=== PATIENT | male | born 1945 | race Caucasian/White ===

== ENCOUNTER 2016-10-15 09:04 | Inpatient (IN) | payer MEDICARE ==
[~2016-10-15] VITALS: Ht 172.7 cm; Wt 77.4 kg
[2016-10-15] MEDS ORDERED: PIPER-TAZO 3.375 GM IV (PMX) 100 ML IVPB STA (09:20)
[2016-10-15] MEDS ORDERED: VANCOMYCIN 1 GM (PMX) 250 ML IVPB STA (09:20)
[2016-10-15] MEDS ORDERED: LEVOFLOXACIN 750MG/D5W (PMX) 150 ML IVPB STA (09:20)
[2016-10-15] MEDS ORDERED: SODIUM CHLORIDE 0.9% 1L BAG IV* STA (09:20)
[2016-10-15] MEDS ORDERED: ACET325S GTB (09:31)
[2016-10-15] MEDS ORDERED: ASCO500S2 GTB (09:34)
[2016-10-15] MEDS ORDERED: DIPH25CA6 GTB (09:35)
[2016-10-15] MEDS ORDERED: IPRA3AMP INHALATION (09:35)
[2016-10-15] MEDS ORDERED: FURO40TA4 GTB (09:37)
[2016-10-15] MEDS ORDERED: HYDR-3671 GTB (09:39)
[2016-10-15] MEDS ORDERED: LANT3I SC (09:40)
[2016-10-15] MEDS ORDERED: GLUC1KIT IJ (09:40)
[2016-10-15] MEDS ORDERED: ZINC220C5 GTB (09:42)
[2016-10-15] MEDS ORDERED: SPIR25TA76 GTB (09:43)
[2016-10-15] MEDS ORDERED: CARAS GTB (09:43)
[2016-10-15] MEDS ORDERED: HYDR-902 GTB ×2 (09:44→09:45)
[2016-10-15] MEDS ORDERED: MULTI GTB (09:46)
[2016-10-15] MEDS ORDERED: UDREG GTB (09:47)
[2016-10-15] MEDS ORDERED: LEVE500S9 GTB (09:48)
[2016-10-15] MEDS ORDERED: LANS30CA GTB (09:49)
[2016-10-15] MEDS ORDERED: ISOS20TA19 GTB (09:50)
[2016-10-15] MEDS ORDERED: INSU100V3 IJ (09:55)
[2016-10-15 10:08] LABS: BASOPHIL # 0.1 10^3/ul (0.0-0.1); BASOPHILS % 0.4 % (0.0-2.0); EOSINOPHILS # 1.4 10^3/ul (0.0-0.5); EOSINOPHILS % 8.7 % (0.0-7.0); HEMATOCRIT 24.5 % (42.0-52.0); HEMOGLOBIN 8.2 g/dl (14.0-18.0); LYMPHOCYTES # 1.4 10^3/ul (0.8-2.9); LYMPHOCYTES % 8.7 % (15.0-51.0); MEAN CORPUSCULAR HEMOGLOBIN 29.1 pg (29.0-33.0); MEAN CORPUSCULAR HGB CONC 33.4 g/dl (32.0-37.0); MEAN CORPUSCULAR VOLUME 87.3 fl (82.0-101.0); MEAN PLATELET VOLUME 8.2 fl (7.4-10.4); MONOCYTE # 1.1 10^3/ul (0.3-0.9); MONOCYTES % 6.7 % (0.0-11.0); NEUTROPHILS % 75.5 % (39.0-77.0); PLATELET COUNT 421 10^3/UL (140-440); RED BLOOD COUNT 2.81 10^6/ul (4.70-6.10); RED CELL DISTRIBUTION WIDTH 16.1 % (11.5-14.5)
--- NOTE | 2016-10-15 10:10 | RADRPT ---
PROCEDURE: XR Chest. CLINICAL INDICATION: Sepsis TECHNIQUE: An AP view of the chest was obtained. COMPARISON: Chest x-ray dated 09/24/2016 FINDINGS: A tracheostomy tube is in place. There is prominence of the interstitial markings. A small left pleural effusion. No focal airspace opacity or pneumothorax is seen. The cardiomediastinal silhouette is mildly enlarged . Calcificati ons are seen within the aortic arch. The osseous structures demonstrate senescent changes. IMPRESSION: 1. Mild prominence of the interstitial markings, may reflect mild underlying interstitial edema or chronic lung changes. Lung aeration is significantly improved when compared to the prior examination . 2. Small left pleural effusion. 3. Mild cardiomegaly and aortic atherosclerosis. 4. Tracheostomy tube. RPTAT: HH .Beatrice Zapata MD, Date Time Electronically viewed and signed by .Beatrice Zapata MD, on 10/15/2016 10:10 .G/
[2016-10-15 10:11] LABS: ADD UMIC YES; URINE BILIRUBIN (Dip) NEGATIVE (NEGATIVE); URINE BLOOD (Dip) 1+ (NEGATIVE); URINE COLOR LT. YELLOW (YELLOW); URINE GLUCOSE (Dip) NEGATIVE (NEGATIVE); URINE KETONES (Dip) NEGATIVE (NEGATIVE); URINE LEUKOCYTE ESTERASE (Dip) 1+ (NEGATIVE); URINE NITRITE (Dip) POSITIVE (NEGATIVE); URINE TOTAL PROTEIN (Dip) 2+ (NEGATIVE); URINE UROBILINOGEN (Dip) 0.2 E.U./dL (0.1-1.0)
[2016-10-15 10:17] LABS: CONDITION 1; LH ANALYZER COMMENTS 1
[2016-10-15 10:20] LABS: CHLORIDE 101 mmol/L (97-110); SODIUM 139 mmol/L (135-144)
[2016-10-15 10:21] LABS: INR 0.92; PROTIME 12.4 Sec (12.2-14.2)
[2016-10-15 10:22] LABS: CREATININE 2.02 mg/dl (0.61-1.24); PARTIAL THROMBOPLASTIN TIME 35.1 Sec (25.0-35.0)
[2016-10-15 10:23] LABS: ALANINE AMINOTRANSFERASE 91 IU/L (13-69); ALBUMIN/GLOBULIN RATIO 0.69; ALKALINE PHOSPHATASE 1099 IU/L (42-121); ANION GAP 16 (8-16); ASPARTATE AMINO TRANSFERASE 70 IU/L (15-46); BLOOD UREA NITROGEN 93 mg/dl (7-20); CARBON DIOXIDE 28 mmol/L (21-31); GLUCOSE 153 mg/dl (70-220); TOTAL PROTEIN 7.3 g/dl (6.1-8.1)
[2016-10-15 10:24] LABS: CALCIUM 8.2 mg/dl (8.4-10.2)
[2016-10-15 10:26] LABS: POTASSIUM 6.2 mmol/L (3.5-5.1)
[2016-10-15 10:28] LABS: BACTERIA,URINE MANY
[2016-10-15 10:37] LABS: TROPONIN-I < 0.010 ng/ml (0.00-0.12)
--- NOTE | 2016-10-15 10:56 | ERA ---
ER Documentation Chief Complaint Date/Time DATE: 10/15/16 TIME: 917 Chief Complaint Abnormal lab tests HPI 71-year-old male referred to the emergency department from his care facility for evaluation of an abnormal lab test including an elevated BUN and creatinine , and elevated white blood cell count. Patient is nonverbal and provides no significant insight and I have no other historical sources. ROS All systems reviewed and are negative except as per history of present illness. Medications Home Meds Reported Medications Insulin Regular, Human (Humulin R) 100 Unit/1 Ml Vial, 0 IJ Q6, VIAL SLIDING SCALE 0-150 = O UNITS 151-200 = 2 UNITS 201-250 = 4 UNITS 251-300 = 6 UNITS 301-350 = 8 UNITS 351-400 =10 UNITS IF OVER 400 GIVE 12 UNITS AND CALL MD 10/15/16 Isosorbide Dinitrate* (Isosorbide Dinitrate*) 20 Mg Tablet, 20 MG GTB TID, TAB 10/15/16 Lansoprazole* (Lansoprazole*) 30 Mg Capsule.dr, 30 MG GTB BID, CAP 10/15/16 Levetiracetam* (Levetiracetam*) 500 Mg/5 Ml Solution, 1000 MG GTB BID, ML 10/15/16 Metoclopramide* (Reglan*) 10 Mg/10 Ml Soln, 5 MG GTB Q8 Y for NAUSEA AND/OR VOMITING, ML 10/15/16 Multivitamins* (Theragran*) 1 Tab Tab, 1 TAB GTB DAILY, TAB 10/15/16 Hydrocodone/Acetaminophen ([place] 10-325 Tablet) 1 Each Tablet, 1 EACH GTB Q6 Y for PAIN, TAB 10/15/16 Hydrocodone/Acetaminophen ([place] 10-325 Tablet) 1 Each Tablet, 1 EACH GTB EVERY DAY SHIFT Y for WOUND CARE, TAB 10/15/16 Spironolactone* (Aldactone*) 25 Mg Tablet, 25 MG GTB DAILY, #30 TAB 10/15/16 Sucralfate* (Carafate*) 1 Gm/10 Ml Susp, 1 GM GTB BID, EA 10/15/16 Zinc Sulfate* (Zinc Sulfate*) 220 Mg Cap, 220 MG GTB DAILY, CAP END DATE 10-19-16 10/15/16 Insulin Glargine* (Lantus*) 100 Unit/Ml Soln, 12 UNIT SC BID, #1 VIAL 10/15/16 Glucagon,Human Recombinant (Glucagon Emergency Kit) 1 Mg Kit, 1 MG IJ PRN, KIT 10/15/16 Hydralazine Hcl* (Hydralazine Hcl*) 25 Mg Tab, 25 MG GTB Q6 Y for ELEVATED BLOOD PRESSURE, #120 TAB HOLD IF SBP <110 OR HR<60 10/15/16 Furosemide* (Furosemide*) 40 Mg Tablet, 40 MG GTB DAILY, TAB 10/15/16 Ipratropium-Albuterol (Ipratropium-Albuterol) 0.5-3 Mg/3 Ml Ampul.neb, 3 ML INHALATION Q4 Y for WHEEZING AND SOB, #30 VIAL 10/15/16 Diphenhydramine Hcl* (Diphenhydramine Hcl*) 25 Mg Capsule, 25 MG GTB Q6 Y for ITCHING, CAP 10/15/16 Ascorbic Acid* (Ascorbic Acid*) 500 Mg/5 Ml Syrup, 500 MG GTB DAILY, #150 ML 10/15/16 Acetaminophen* (Acetaminophen* Susp) 325 Mg/10.15 Ml Solution, 650 MG GTB Q6 Y for ELEVATED TEMPERATURE, ML OVER 100.2 10/15/16 Allergies Allergies: Coded Allergies: No Known Allergies (Unverified Allergy, Unknown, 10/15/16) PMhx/Soc History of Surgery: No Anesthesia Reaction: No Hx Neurological Disorder: No Hx Respiratory Disorders: Yes (RESPIRATORY FAILURE) Hx Cardiac Disorders: Yes (HTN) Hx Psychiatric Problems: No Hx Miscellaneous Medical Probl: No Hx Alcohol Use: No Hx Substance Use: No Hx Tobacco Use: No Smoking Status: Never smoker FmHx Unable to obtain Physical Exam Vitals Vital Signs Date Time Temp Pulse Resp B/P Pulse Ox O2 Delivery O2 Flow Rate FiO2 10/15/16 10:49 81 17 100 40 10/15/16 09:18 98.7 87 18 145/66 98 Physical Exam General: frail, bed bound, ill appearing HEENT: Mucous membranes dry, sclera nonicteric Neck: Tracheostomy noted. Ostomy patent. No inflammatory changes noted. No JVD. Cardiovascular: Regular rate and rhythm, no murmurs rubs or gallops. Lungs: Transmission of upper airway sounds. Abdomen: Soft with G-tube appreciated. Nontender to palpation. Bowel sounds noted. : Diaper in place and incontinent. Extremities: Atrophic but atraumatic with no edema, cyanosis or clubbing. Neurologic: Baseline organic brain syndrome noted. Gag reflex week. Motor strength diminished in all 4 extremities but otherwise nonfocal. Skin: Skin breakdown noted per nursing note. Result Diagram: 10/15/1630 10/15/1630 Results 24 hrs Laboratory Tests Test 10/15/16 09:30 Activated Partial Thromboplast Time 35.1Sec Alanine Aminotransferase (ALT/SGPT) 91IU/L Albumin 3.0g/dl Albumin/Globulin Ratio 0.69 Alkaline Phosphatase 1099IU/L Anion Gap 16 Aspartate Amino Transf (AST/SGOT) 70IU/L Basophils # 0.110^3/ul Basophils % 0.4% Blood Morphology Comment Blood Urea Nitrogen 93mg/dl Calcium Level 8.2mg/dl Carbon Dioxide Level 28mmol/L Chloride Level 101mmol/L Creatinine 2.02mg/dl Direct Bilirubin 0.00mg/dl Eosinophils # 1.410^3/ul Eosinophils % 8.7% Globulin 4.30g/dl Glucose Level 153mg/dl Hematocrit 24.5% Hemoglobin 8.2g/dl INR International Normalized Ratio 0.92 Indirect Bilirubin 0.0mg/dl Lactic Acid Level 0.8mmol/L Lymphocytes # 1.410^3/ul Lymphocytes % 8.7% Mean Corpuscular Hemoglobin 29.1pg Mean Corpuscular Hemoglobin Concent 33.4g/dl Mean Corpuscular Volume 87.3fl Mean Platelet Volume 8.2fl Monocytes # 1.110^3/ul Monocytes % 6.7% Neutrophils # 12.010^3/ul Neutrophils % 75.5% Nucleated Red Blood Cells # 0.010^3/ul Nucleated Red Blood Cells % 0.0/100WBC Platelet Count 88451^3/UL Potassium Level 6.2mmol/L Prothrombin Time 12.4Sec Prothrombin Time Ratio 1.0 Red Blood Count 2.8110^6/ul Red Cell Distribution Width 16.1% Sodium Level 139mmol/L Total Bilirubin 0.0mg/dl Total Protein 7.3g/dl Troponin I < 0.010ng/ml Urine Bacteria MANY Urine Bilirubin NEGATIVE Urine Clarity SLIGHTLY CLOUDY Urine Color LT. YELLOW Urine Glucose NEGATIVE% Urine Hemoglobin 1+ Urine Ketones NEGATIVE Urine Leukocyte Esterase 1+ Urine Microscopic RBC 2-5/HPF Urine Microscopic WBC 5-10/HPF Urine Nitrite POSITIVE Urine Specific [place] 1.015 Urine Total Protein 2+ Urine Urobilinogen 0.2 E.U./dL Urine Yeast MANY Urine pH 8.5 White Blood Count 16.010^3/ul Current Medications Medications (Trade) Dose Ordered Sig/Ajmeson Route PRN Reason Start Time Stop Time Status Last Admin Dose Admin Sodium Chloride 2170 ml 2,170 ml BOLUS OVER 2 HOURS STAT IV* 10/15/16 09:20 10/15/16 09:23 DC 10/15/16 09:52 Vancomycin HCl 250 ml @ 125 mls/hr ONCE STAT IVPB 10/15/16 09:20 10/15/16 11:19 Piperacillin Sod/ Tazobactam Sod 100 ml @ 200 mls/hr ONCE STAT IVPB 10/15/16 09:20 10/15/16 09:49 DC 10/15/16 09:52 Levofloxacin/ Dextrose (Levaquin 750 Mg/ D5W 150 ml (Pmx)) 150 ml @ 100 mls/hr ONCE STAT IVPB 10/15/16 09:20 10/15/16 10:49 DC 10/15/16 10:27 Procedures/MDM Patient was taken to a room, seen and evaluated. Comfort measures were initiated. Diagnostic tests were ordered and reviewed. 3 LEAD RHYTHM STRIP: Normal sinus rhythm without ectopy EK lead EKG reviewed by myself: Normal Sinus Rhythm Normal [place] and intervals No ST elevation, depression, or T wave inversion Impression: Normal EKG RADIOLOGY: reviewed with the radiologist CONSULTATION: Patient's primary care doctor was notified for admission REEVALUATION: Patient remained hemodynamically stable MEDICAL DECISION MAKIN-year-old male presents for abnormal blood tests. Lab tests indicate an early sepsis but not severe sepsis based on a normal lactate. At this time, patient seems to have evidence of a healthcare associated/ventilator associated pneumonia. He has concurrent acute renal failure. Patient will require admission to the hospital for observation and monitoring, IV fluids, IV antibiotics and monitoring his comorbid conditions. Patient presents with sepsis. Severe Sepsis Critical Care: Assessment: Infectious Source: Catheter associated urinary tract infection/healthcare associated pneumonia, cholecystitis to be ruled out End organ damage indicated by: Initial Lactate: Reviewed less than 2 Acute renal failure Severe Sepsis Managment: Blood Cultures X 2 before broad spectrum antibiotics initiated within 3 hours of recognition. 30 ml/kg NS bolus ongoing Initial Lactate: reviewed Repeat Lactate pending Critical Care: Time: > 35 minutes Treatments/Evaluations: Emergent fluid management, while maintaining close respiratory support. Immediate broad spectrum antibiotic therapy. Simultaneous assessment for possible sources in order to direct therapy. Consideration for invasive and chemical support to prevent respiratory or cardiac collapse. Septic Shock Assessment (1 hour post 30 ml/kg fluid bolus): Hypotension (SBP < 90 or 40 mmHg drop, MAP < 65): No Lactic acid > 4.0: No Perfusion Reassessment for Septic Shock: Vital signs reviewed with nursing Heart Exam: Regular rate rhythm no murmurs Lung Exam: No Crackles Capillary Refill: Delayed Peripheral Pulses: Radially present Departure Diagnosis: Primary Impression: Sepsis Additional Impressions: Catheter-associated urinary tract infection Ventilator associated pneumonia Acute renal failure Condition: Serious NEFTALI MARTINEZ Oct 15, 2016 10:56
[2016-10-15] MEDS ORDERED: NA POLYST SULFON 15 GM/60 ML BTL PO ONE ×2 (13:00→17:00)
--- NOTE | 2016-10-15 13:04 | RADRPT ---
PROCEDURE: US Abdomen (right upper quadrant). CLINICAL INDICATION: Pain TECHNIQUE: Multiple real-time longitudinal and transverse images of the right upper quadrant of th e abdomen were acquired utilizing a curved array transducer. Images were reviewed on a high-resoluti on PACS workstation. COMPARISON: None FINDINGS: The liver is normal in size (15.8 cm) and fatty infiltrated, without focal mass. Normal hepatopedal flow is present within the main portal vein. The gallbladder is unremarkable. There is no pericho lecystic fluid or gallbladder wall thickening or gallstones. No intra or extrahepatic biliary dilata tion is seen. The common bile duct measures 7.0 mm in maximal dimension. The pancreas is obscured by bowel gas. No ascites is identified. Small right pleural effusion is noted. The right kidney measures 10.8 cm in length. No renal mass, calculus, hydronephrosis or perinephric fluid collection is identified. Visualized portion of the abdominal aorta and IVC is unremarkable. IMPRESSION: 1. Hepatic steatosis. 2. No evidence of cholelithiasis or cholecystitis. 3. Small right pleural effusion is noted. RPTAT: EE .Markus Greene MD, Date Time Electronically viewed and signed by .Markus Greene MD, on 10/15/2016 13:04 .R/
--- NOTE | 2016-10-15 14:22 | CONS ---
DATE OF ADMISSION: 10/15/2016 DATE OF CONSULTATION: 10/15/2016 INFECTIOUS DISEASE CONSULTATION REASON FOR CONSULTATION: Antibiotic management. HISTORY OF PRESENT ILLNESS: Elham Avina is a 71-year-old unfortunate male who comes into the emergenc y room with abnormal laboratory tests including an elevated BUN, creatinine, and white count. The p atient is nonverbal. His past problems include: 1. Chronic obstructive pulmonary disease with ventilator dependent respiratory failure. 2. Status post tracheostomy. 3. Hypertension. 4. Dysphagia, status post G-tube placement. Acutely, the patient comes in, his white count was 16,000, H and H of 8.2 and 24.5, platelet count 4 21,000. BUN and creatinine 93 and 2.02. His glucose is 153. PAST MEDICAL HISTORY: Operations as outlined. FAMILY HISTORY: Noncontributory. SOCIAL HISTORY: No history of smoking, drinking, or abuse of drugs. ALLERGIES: NONE TO PENICILLIN, SULFA, OR FOODS. MEDICATIONS: Per chart. REVIEW OF SYSTEMS: As per HPI. PHYSICAL EXAMINATION: GENERAL: The patient is a frail bed bound male who is chronically ill, in no acute distress. VITAL SIGNS: Stable. He is afebrile. SKIN: Without generalized rash. There are some skin breakdowns. HEENT: Within normal limits. NECK: Supple. There is a tracheostomy in place without discharge. LYMPH NODES: None palpable. CHEST: Decreased breath sounds at the bases. HEART: Without murmur or gallop. ABDOMEN: Soft, nontender, without organosplenomegaly or masses. G-tube in place without discharge. EXTREMITIES: Without cyanosis, clubbing, or edema. His muscles are atrophic. RECTAL AND GENITAL: Deferred. The patient is in the diaper. NEUROLOGIC: The patient with organic brain syndrome. There are no focal neurological abnormalities . IMAGING: Chest x-ray shows tracheostomy, mild prominence of interstitial markings, may reflect mild underlying interstitial edema or chronic lung changes, small left pleural effusion, mild cardiomega ly and aortic atherosclerosis. LABORATORY DATA: Urine shows 1+ leukocyte esterase, 5 to 10 white cells per high-power field. Pota ssium of 6.2. BUN and creatinine was 93/2.02. Significant for renal failure and probable dehydrati on. The patient was begun on vancomycin and Zosyn. Blood cultures were drawn. C difficile was ordered. Culture of the feces and urine were also done. IMPRESSION AND PLAN: Elham Avina comes in with sepsis with a white count of 16,000. Source is not cl ear at this point. Will continue him on vancomycin and Zosyn. Dictated By: MOLINA GOMEZ MD, JD/HANK Conf#: [id number] DID#: [id number]
[2016-10-15] MEDS ORDERED: GLUCOSE GEL 15 GRAM TUBE PO PRN ×2 (15:30→15:31)
[2016-10-15] MEDS ORDERED: DEXTROSE 50% 50 ML SYRINGE IV PRN ×2 (15:30)
[2016-10-15] MEDS ORDERED: GLUCAGON 1 MG INJ IM PRN (15:30)
[2016-10-15] MEDS ORDERED: GLUCOSE GEL 15 GRAM TUBE BUCCAL PRN (15:30)
[2016-10-15] MEDS ORDERED: HYDROCODONE/APAP (10/325) TAB GTB PRN ×2 (15:30)
[2016-10-15] MEDS ORDERED: DIPHENHYDRAMINE 25 MG CAP GTB PRN (15:30)
[2016-10-15] MEDS ORDERED: ACETAMINOPHEN 650MG/20.3ML CUP GTB PRN (15:30)
[2016-10-15] MEDS ORDERED: ALBUTEROL/IPRATROPIUM (NEB) 3 ML AMP NEB PRN (15:30)
[2016-10-15] MEDS ORDERED: METOCLOPRAMIDE (1 MG/ML) 10 ML CUP GTB PRN (15:30)
[2016-10-15] MEDS ORDERED: VANCOMYCIN IV PER PHARMACY XX SCH (16:30)
[2016-10-15 16:53] LABS: CREATININE 2.06 mg/dl (0.61-1.24)
[2016-10-15 16:54] LABS: CALCIUM 8.1 mg/dl (8.4-10.2)
[2016-10-15] MEDS: PIPER-TAZO 3.375 GM IV (PMX) 100 ML IVPB SCH ×2 (16:57→23:02)
[2016-10-15 16:59] LABS: POTASSIUM 6.1 mmol/L (3.5-5.1)
[2016-10-15] MEDS ORDERED: Discontinue Glyburide, Glipizide, and/or Glimepiride prior to starting Insulin XX ONE (17:00)
[2016-10-15] MEDS ORDERED: HYPOGLYCEMIA PROTOCOL when Glucose is <70 mg/dL or symptomatic <90 mg/dL. XX ONE (17:00)
--- NOTE | 2016-10-15 17:13 | CONS ---
DATE OF ADMISSION: 10/15/2016 DATE OF CONSULTATION: 10/15/2016 TYPE OF CONSULTATION: Cardiology. REASON FOR CONSULTATION: Ventilator management. Thank you, Dr. Bragg, for this consultation. HISTORY OF PRESENT ILLNESS: This is an unfortunate 71-year-old gentleman with history of vent-depen dent respiratory failure, presented to the hospital today. Date of consultation was 10/15/2016, pr esented with increasing abnormal labs including leukocytosis and creatinine. Few further details ar e available. The patient is nonverbal and continues mechanical ventilation. PAST MEDICAL HISTORY: 1. Vent dependent respiratory failure. 2. History of tracheostomy. 3. History of dysphagia. 4. Encephalopathy of unclear etiology. Incomplete data. MEDICATIONS: Per chart. ALLERGIES: NO KNOWN ALLERGIES. SOCIAL HISTORY: Nonsmoker, no alcohol, no history of drug use. FAMILY HISTORY: Noncontributory. SYSTEMS REVIEW: A 12-point review of systems was unable to perform. PHYSICAL EXAMINATION: GENERAL: Chronically ill appearing gentleman, appears comfortable at rest, no acute distress. VITAL SIGNS: Currently afebrile, pulse is 76, blood pressure 132/69, O2 saturation 96%, FIO2 of 40% . NECK: Trach site clean and intact. CARDIAC: S1, S2, no added sounds or murmurs. CHEST: Diminished air entry bilaterally. ABDOMEN: Soft, nontender. No guarding or rebound. EXTREMITIES: No cyanosis, clubbing, edema. NEUROLOGIC: Generalized weakness. LABORATORY DATA: White count 16.0, hemoglobin 8.2, platelets 41, potassium 6.2, BUN 93, creatinine 2.02. DIAGNOSTIC DATA: Chest x-ray was reviewed, shows increased interstitial edema, small left pleural e ffusion and abdominal ultrasound shows hepatic steatosis, otherwise no significant abnormalities. IMPRESSION AND PLAN: 1. Leukocytosis, likely secondary to urinary tract infection with positive leukocyte esterase, bact eria and nitrites. 2. History vent dependent respiratory failure. 3. History of dysphagia. 4. Incomplete data. The patient will require: 1. Continued vent support. 2. Bronchodilators. 3. Broad-spectrum antibiotics pending cultures. 4. DVT and GI prophylaxis. 5. Correction of hyperkalemia per Nephrology. Dictated By: DIEGO MARKS MD SV/HANK Conf#: [id number] DID#: [id number]
[2016-10-15] MEDS ORDERED: VANCOMYCIN 750 MG in SOD CHLORIDE 0.9% 150 ML IVPB SCH (17:30)
--- NOTE | 2016-10-15 17:38 | HP ---
DATE OF ADMISSION: 10/15/2016 CHIEF COMPLAINT: Sepsis. HISTORY OF PRESENT ILLNESS: This is a 71-year-old male with a past medical history of ventilator de pendent respiratory failure, history of dysphagia, status post PEG, history of encephalopathy, histo ry of diabetes, hypertension, seizure disorder, coronary artery disease, history of CHF, questionabl e history of CKD, who presents to [facility] from subacute facility due to abnorma l labs. The patient at his outside facility was noted to be in acute kidney injury with elevated BU N and creatinine and elevated white count. As a result, he was brought into the hospital. Upon arr ival into the emergency room, the patient had laboratory data drawn, which showed a white count of 1 6,000. The patient also had elevated potassium 6.2, BUN 93, creatinine 2.02. In the emergency room , the patient had a urinalysis which shows positive nitrites, positive for pyuria. A chest x-ray sh owed pleural effusions and interstitial markings. The patient in the emergency room was diagnosed w ith sepsis, started on IV antibiotics, given IV fluids. The patient also was given Kayexalate for h is underlying hyperkalemia. Upon my evaluation of patient at this time, he is is currently nonverbal. Eyes are open, not able to provide history. The patient's history was obtained by reviewing medical records. There have be en no reports of hemoptysis, hemetemesis, hematochezia and no rashes noted. PAST MEDICAL HISTORY: As stated above, history of ventilator dependent respiratory failure, history of dysphagia, history of encephalopathy, history of coronary artery disease, history of seizure dis order, history of diabetes and history of CHF. PAST SURGICAL HISTORY: Status post trach, status post PEG. FAMILY HISTORY: Unable to obtain. SOCIAL HISTORY: Lives at a subacute facility. MEDICATIONS: The patient's medications have been reviewed and reconciled. REVIEW OF SYSTEMS: Unable to do adequate review of systems as patient is altered. Pertinent positi ves obtained by reviewing medical records, speaking to hospital staff, stated in HPI, otherwise nega tive. PHYSICAL EXAMINATION: VITAL SIGNS: Blood pressure is 132/69, respiration 18, pulse 76, temperature 98.7. HEENT: Head is normocephalic. NECK: Shows trach. HEART: Tachycardic. LUNGS: Show diminished breath sounds at base. Positive rhonchi. ABDOMEN: Soft, nontender to palpation. Positive PEG. EXTREMITIES: Negative for clubbing, cyanosis, no edema. DERMATOLOGIC: No rashes. MUSCULOSKELETAL: No joint effusions. NEUROLOGIC: Limited exam due to lack of patient cooperation. GENITOURINARY: Positive Mcgill. LABORATORY DATA: Shows sodium 139, potassium 6.2, chloride 101, BUN 19, creatinine 2.02, calcium 8. 2, AST, ALT 70 and 91, alkaline phosphatase 1000. White count 16.9, hemoglobin 9.2, hematocrit 24.7 , and platelet count is 421. IMAGING STUDIES: Abdominal ultrasound shows hepatic steatosis, no evidence of cholelithiasis and a small right pleural effusion. Chest x-ray as stated in HPI. ASSESSMENT AND PLAN: This is a 71-year-old male who presents with: 1. Severe sepsis. Etiology is likely secondary to urinary tract infection. The patient's urinalys is shows evidence of nitrites, positive pyuria and bacteria. Plan at this point is to check a proca lcitonin level. We will check blood cultures, urine culture and patient will be continued on IV ant ibiotics of vancomycin and Zosyn. We will place an ID consult with Dr. Ying for evaluation and mo sherwin closely. 2. Nonoliguric acute kidney injury on top of chronic kidney disease with unknown baseline creatinin e. Etiology is multifactorial secondary to sepsis, hemodynamics and volume depletion. The patient' s urinalysis was reviewed which does show evidence of pyuria, mild hematuria and proteinuria which c an be seen in chronic kidney disease and urinary tract infection. The possibility of acute glomerul onephritis vasculitis or interstitial nephritis is less likely given clinical presentation. Plan at this point is to repeat urinalysis with microanalysis. Will check urine electrolytes. We will les ntify the patient's proteinuria. Will check renal ultrasound. Will continue IV hydration. Will co ntinue IV antibiotics to treat underlying sepsis. Otherwise, continue supportive care, renally dose meds and avoid nephrotoxins. 4. Hyperkalemia. Etiology is multifactorial secondary to acute kidney injury and Aldactone effect. The patient is status post Kayexalate. We will repeat a BMP. We will hold Aldactone. Continue I V hydration, monitor closely. 5. Mineral bone disorder. Monitor calcium and phosphorus levels. 6. Anemia, likely of chronic disease. Monitor hemoglobin and hematocrit levels. Will check a ferr itin, iron panel and check stool for occult blood. 7. Ventilator dependent respiratory failure. Vent settings have been reviewed. Will check an ABG. We will follow up. We will place a pulmonary consult for evaluation. 8. Status post percutaneous endoscopic gastrostomy tube. The patient will be resumed on tube feedi ng. 9. Seizure disorder. Continue Keppra. 10. Coronary artery disease. We will continue current medical management. Place cardiology consul t for evaluation. 11. Diabetes. Continue Accu-Cheks, insulin sliding scale. 12. Acute on chronic encephalopathy. Etiology is toxic metabolic. We will continue current medica l management and monitor closely. 13. Gastrointestinal and deep venous thrombosis prophylaxis. The patient will be placed on Prevaci d and heparin. I spent 30 minutes of time discussing code status with the patient's family. The patient is a FULL CODE. Dictated By: LUIS ENRIQUE WAHL/HANK Conf#: [id number] DID#: [id number]
[2016-10-15] MEDS: INSULIN ASPART [NOVOLOG] 3 ML PEN SC SCH ×2 (18:00→21:00)
[2016-10-15] MEDS: ISOSORBIDE DINITRATE 20 MG TAB GTB SCH (20:43)
[2016-10-15] MEDS: SUCRALFATE (100 MG/ML) 10ML CUP GTB SCH (20:43)
[2016-10-15] MEDS: LANSOPRAZOLE 30 MG CAP GTB SCH (20:44)
[2016-10-15] MEDS: INSULIN GLARGINE [LANtus] 3 ML PEN SC SCH (20:59)
[2016-10-15] MEDS ORDERED: HEPARIN 5,000 UNIT/0.5 ML SYG SC SCH (21:00)
[2016-10-15] MEDS: LEVETIRACETAM (100 MG/ML) 5ML CUP GTB SCH (21:01)
--- NOTE | 2016-10-15 21:03 | CONS ---
DATE OF ADMISSION: 10/15/2016 DATE OF CONSULTATION: HISTORY OF PRESENT ILLNESS: A 71-year-old male with a history of vent-dependent respiratory failure , PEG, history of encephalopathy, diabetes mellitus, hypertension, seizure disorder, coronary artery disease, presented to the [facility] for abnormal labs. The patient's BUN was 93 , creatinine was high, and WBC was elevated, so he was sent for further evaluation. In the ER, he w as evaluated. BUN was high, potassium was 6.2, and alkaline phosphatase was reported 1000 with mild elevation of SGOT, SGPT. GI consult was called in for abnormal LFT and also for anemia. No eviden ce of gross GI bleeding. No history could be obtained from the patient. No abdominal pain, no naus ea, no vomiting. In the ER, the patient had received Kayexalate for hyperkalemia. The ultrasound o f the abdomen done, which showed only fatty infiltration of the liver. PAST MEDICAL HISTORY: As described. PAST SURGICAL HISTORY: Trach and PEG. MEDICATIONS: All reviewed. PHYSICAL EXAMINATION: VITAL SIGNS: Stable. HEENT: Unremarkable. NECK: Supple. No thyromegaly, no lymphadenopathy. CARDIOVASCULAR: No murmur, gallop, or click. LUNGS: Air entry diminished at both bases. The patient has trach, on vent. ABDOMEN: Benign. He has a G-tube. EXTREMITIES: No edema. GENITOURINARY: The patient has a Mcgill catheter. NEUROLOGIC: The patient is nonverbal, not cooperative. LABORATORY DATA: The patient's BUN was 93, creatinine was 2.02. Alkaline phosphatase was 1099. Co agulation was normal. Hematocrit was 24.5, WBC is 16. IMPRESSION: 1. Sepsis, most probably urinary tract infection. 2. Nonoliguric renal failure. 3. Anemia. 4. Vent dependent respiratory failure. 5. Seizure disorder. 6. Diabetes mellitus. 7. Coronary artery disease. 8. Encephalopathy. PLAN: 1. At this point, is to work him up for the anemia. 2. We will also send for a PSA level. 3. We will monitor the alkaline phosphatase level. If sonogram, which does not show significant fi nding, then patient may need further workup in the form of MRCP, plus or minus liver biopsy. Also, if MRCP is negative, then I may do a bone scan to make sure that the alkaline phosphatase is not com ing from the bone. This is all will be decided after reviewing the result of PSA and MRCP. Dictated By: KARINE QUINTANA/HANK Conf#: [id number] DID#: [id number] CC: LUIS ENRIQUE STONER DO; KARINE SCHAFER MD;*EndCC*
[2016-10-16] VITALS (23 sets, daily range): BP systolic 137–165; BP diastolic 68–78; PULSE 71–85; RESP 12–22; Ht 172.7 cm; Wt 77.4 kg
[2016-10-16] MEDS: ACCUCHECK AT 2AM (Patients on SS coverage) XX SCH (02:00)
[2016-10-16] MEDS: PIPER-TAZO 3.375 GM IV (PMX) 100 ML IVPB SCH ×3 (05:06→22:01)
[2016-10-16 06:36] LABS: BASOPHILS % 0.3 % (0.0-2.0); EOSINOPHILS % 7.9 % (0.0-7.0); HEMATOCRIT 23.4 % (42.0-52.0); LYMPHOCYTES # 1.1 10^3/ul (0.8-2.9); LYMPHOCYTES % 8.5 % (15.0-51.0); MEAN CORPUSCULAR HGB CONC 34.2 g/dl (32.0-37.0); MEAN CORPUSCULAR VOLUME 87.7 fl (82.0-101.0); MEAN PLATELET VOLUME 7.8 fl (7.4-10.4); MONOCYTE # 0.8 10^3/ul (0.3-0.9); MONOCYTES % 6.6 % (0.0-11.0); NEUTROPHIL # 9.5 10^3/ul (1.6-7.5); NEUTROPHILS % 76.7 % (39.0-77.0); PLATELET COUNT 367 10^3/UL (140-440); POTASSIUM 4.6 mmol/L (3.5-5.1); RED BLOOD COUNT 2.67 10^6/ul (4.70-6.10); UNCORRECTED WBC 12.4 10^3/ul (4.8-10.8); WHITE BLOOD COUNT 12.4 10^3/ul (4.8-10.8)
[2016-10-16 06:39] LABS: CREATININE 1.7 mg/dl (0.61-1.24)
[2016-10-16 06:40] LABS: CALCIUM 7.6 mg/dl (8.4-10.2); MAGNESIUM 3.1 mg/dl (1.7-2.5); PHOSPHORUS 5.2 mg/dl (2.5-4.9)
[2016-10-16 06:45] LABS: CONDITION 1; LH ANALYZER COMMENTS 1
--- NOTE | 2016-10-16 07:48 | CONS ---
DATE OF ADMISSION: 10/15/2016 DATE OF CONSULTATION: 10/15/2016 REFERRING PHYSICIAN: Dr. Bragg. REASON FOR CONSULTATION: Arrhythmia. CHIEF COMPLAINT: Respiratory failure, abnormal labs, sepsis. HISTORY OF PRESENT ILLNESS: ____Thank you for this referral. History obtained from the patient's c davis, review of the old chart, discussion with physician and staff. The patient ____. This is an u nfortunate 71-year-old gentleman who was transferred from [facility] for evaluation of a bdominal mass. The patient noted to have severely elevated BUN and creatinine and white count and i s being admitted. The patient with history of arrhythmia. We were kindly asked to evaluate and fol low. 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 He has had a ventriculostomy placed at that time. He has had a tracheostomy and PEG placement. Has been vent dependent since then. SOCIAL HISTORY: The patient with no active tobacco, alcohol or drug abuse. FAMILY HISTORY: No reported coronary artery disease. MEDICATIONS: As per medication reconciliation, personally reviewed. ALLERGIES: NO KNOWN DRUG ALLERGIES REPORTED IN THE CHART. REVIEW OF SYSTEMS: Unable to obtain except for above-mentioned. PHYSICAL EXAMINATION: VITAL SIGNS: Temperature 98. 7, heart rate of 76, blood pressure 132/69, respiration rate of 18, sa turating 100%. HEENT: Normocephalic, atraumatic. Pupils are equal. NECK: Status post tracheostomy, on the vent. CARDIOVASCULAR: Regular rate and rhythm, systolic murmur. PULMONARY: With no wheezes anteriorly. Minimal rhonchi at the base. GASTROINTESTINAL: Soft, nontender. ____. No rebound or guarding. EXTREMITIES: Trivial edema. NEUROLOGIC: Opens his eyes, does not answer my questions. PSYCHIATRIC: Appears to be calm. LABORATORY: WBC of 16, hemoglobin 8.2, platelets of 421. Sodium 139, potassium 6.2, BUN of 93, cre atinine 2.02, glucose 153. Troponin less than 0.01. INR is 0.92. Chest x-ray done today shows mild prominence of interstitial marking, small left pleural effusion. Review of the old chart shows patient had echocardiogram done on September 04 of last year which was personally reviewed, which shows ejection fraction is about 25% to 30% with multiple wall motion ab normalities. ASSESSMENT AND PLAN: 1. Hypoxemic respiratory failure. 2. Acute renal failure on chronic kidney disease. 3. Diabetes. 4. History of multiple ____ including hemorrhagic cerebrovascular accident. 5. Arrhythmia ____ paroxysmal atrial fibrillation ____ junctional rhythm, currently remains in sinu s rhythm. 6. Malnutrition, ____ and low albumin level. 7. Encephalopathy. 8. Cardiomyopathy. RECOMMENDATIONS: Diabetic management as per internal medicine. The patient was admitted for close monitoring. FEN support will be continued. Continue ____ as tolerated. No JAMES inhibitor due to hi s acute renal failure and high potassium. Potassium and electrolyte management as per internal medi cine. We will continue to follow along with you. Dictated By: JAYDA DO/HANK Conf#: [id number] DID#: [id number]
[2016-10-16 08:54] LABS: IRON 60 ug/dl (35-150)
[2016-10-16] MEDS: INSULIN GLARGINE [LANtus] 3 ML PEN SC SCH ×2 (09:00→22:09)
[2016-10-16] MEDS: ALBUMIN HUMAN 25% 100 ML IV SCH ×2 (09:00→18:40)
[2016-10-16] MEDS ORDERED: DEXTROSE 5% 1,000 ML IV SCH (09:00)
[2016-10-16 09:03] LABS: TOTAL IRON BINDING CAPACITY 197 ug/dl (241-421)
[2016-10-16 09:19] LABS: ALBUMIN 2.8 g/dl (3.3-4.9)
[2016-10-16 09:21] LABS: BILIRUBIN,INDIRECT 0.1 mg/dl (0-1.1); BILIRUBIN,TOTAL 0.1 mg/dl (0.2-1.3)
[2016-10-16 09:22] LABS: TOTAL PROTEIN 6.7 g/dl (6.1-8.1)
[2016-10-16] MEDS: INSULIN ASPART [NOVOLOG] 3 ML PEN SC SCH ×2 (09:37→11:50)
--- NOTE | 2016-10-16 10:49 | PN ---
DATE: 10/16/2016 CARDIOLOGY FOLLOWUP SUBJECTIVE: Discussed with the staff. ____ ____. The patient remains in sinus rhythm. No evidenc e of significant arrhythmia noted. Status post tracheostomy. Still nonverbal. MEDICATIONS: Reviewed, which include: 1. Vitamins. 2. Insulin. 3. Prevacid. 4. ____. 5. Heparin subcutaneous. 6. Insulin. 7. Zosyn. 8. Vancomycin. PHYSICAL EXAMINATION: VITAL SIGNS: Temperature 97.9, heart rate of 79, blood pressure 145/70, respiratory rate of 12, sat urating 100%. HEENT: Normocephalic. Several previous cranial surgeries. Eyes: Pupils are equal. NECK: Status post tracheostomy. On oxygen. CARDIOVASCULAR: Regular rate and rhythm, systolic murmur. PULMONARY: Minimal rhonchi. GASTROINTESTINAL: Soft, nontender. EXTREMITIES: Positive lower extremity edema. NEUROLOGIC: Appeared to be awake; however, is nonverbal, does not answer my questions. PSYCHIATRIC: Appeared to be calm. LABORATORY: WBC of 12.4, hemoglobin ____, platelets of 367,000. Sodium 144, potassium 4.6 this mor sixto. BUN of 77, creatinine 1.7, glucose of 90. ASSESSMENT AND PLAN: 1. Acute renal failure. 2. Hyperkalemia secondary to above. 3. Sepsis ____ urinary tract infection. 4. History of severe cardiomyopathy. 5. History of hemorrhagic cerebrovascular accident. 6. Dysphagia, status post percutaneous endoscopic gastrostomy placement. 7. History of seizure disorder. 8. Encephalopathy. RECOMMENDATIONS: Diabetic control will be continued. The patient is not anticoagulated due to his history of hemorrhagic CVA and anemia. He is not on any JAMES inhibitors despite his history of cardi omyopathy due to his hyperkalemia and acute renal failure. Antibiotic is managed as per ID. We ron l continue with the respiratory care. We will continue to monitor on telemetry. Dictated By: JAYDA DO/HANK Conf#: [id number] DID#: [id number]
[2016-10-16] MEDS: ASCORBIC ACID 500 MG TAB GTB SCH (10:51)
[2016-10-16] MEDS: SUCRALFATE (100 MG/ML) 10ML CUP GTB SCH ×2 (10:51→22:01)
[2016-10-16] MEDS: MULTIVITAMINS 5 ML CUP GTB SCH (10:51)
[2016-10-16] MEDS: LEVETIRACETAM (100 MG/ML) 5ML CUP GTB SCH ×2 (10:51→22:01)
[2016-10-16] MEDS: ISOSORBIDE DINITRATE 20 MG TAB GTB SCH ×3 (10:52→22:02)
[2016-10-16] MEDS: LANSOPRAZOLE 30 MG CAP GTB SCH ×2 (10:52→22:01)
[2016-10-16] MEDS: ZINC SULFATE 220 MG CAP GTB SCH (10:52)
--- NOTE | 2016-10-16 11:10 | PN ---
DATE: 10/16/2016 SUBJECTIVE: The patient is critical, but stable hemodynamically. No acute events overnight. No he moptysis, hematemesis or hematochezia. OBJECTIVE: VITAL SIGNS: Blood pressure is 140/68, respiration 18, pulse 78, temperature 98.0. INTAKE AND OUTPUT: The patient had 330 mL in, 350 out. HEENT: Head is normocephalic. NECK: Supple. HEART: Regular rate. LUNGS: Show diminished breath sounds at base. ABDOMEN: Soft, nontender to palpation. No rebound or guarding. EXTREMITIES: Negative for clubbing, cyanosis. Positive edema. DERMATOLOGIC: No rashes. MUSCULOSKELETAL: No joint effusions. NEUROLOGIC: No change in exam. MEDICATIONS: The patient's medications have been reviewed. LABORATORY DATA: Shows sodium 144, potassium 4.6, chloride 107, BUN 77, creatinine 1.70, phosphorus 5.2, magnesium 3.1. White count 12.4, hemoglobin 8.0, hematocrit 23.4, platelet count 367. The keily louis's urinalysis was reviewed. Cultures pending. ASSESSMENT AND PLAN: 1. Severe sepsis. Etiology is secondary to urinary tract infection. The patient is currently stab le. We will continue current treatment plan with antibiotic therapy. We will follow up blood cultu res, urine cultures. Follow up with Infectious Disease for further recommendations. Lactic acid le vels were within normal limits. Will check procalcitonin level and monitor. 2. Nonoliguric acute kidney injury on top of chronic kidney disease with baseline creatinine around 1.5 mg/dL. Etiology acute kidney injury is multifactorial secondary to sepsis, hemodynamics. The patient's renal function has been improving with supportive care. At this point, we will continue c urrent treatment plan. Continue IV antibiotics. We will give the patient an albumin challenge with 25% of 100 mL for 3 doses. Otherwise, continue supportive care, renally dose all meds. Please not e, a renal ultrasound is pending to evaluate renal parenchyma and rule out obstruction, although mira picion is low. 3. Hyperkalemia secondary to acute kidney injury, improved. Continue to monitor. 4. Mineral bone disorder. Continue to monitor calcium, phosphorus levels. 5. Anemia, likely of chronic disease. Will check iron panel, stool for occult blood, monitor H and H levels. 6. Ventilator dependent respiratory failure. Vent settings have been reviewed. ABG has been revie wed. Continue to monitor. Follow up with Pulmonary. 7. Dysphagia, status post percutaneous endoscopic gastrostomy tube. The patient will be resumed on tube feed. 8. Seizure disorder. Continue Keppra. 9. History of cerebrovascular, possibly hemorrhagic. The patient at this point appears to be at [facility]. Will continue to monitor. Consider CT scan of the head if there is a change in clinical st atus. 10. History of coronary artery disease. Continue medical management. Followup with Cardiology. 11. Diabetes. Continue Accu-Cheks and sliding scale. 12. Acute on chronic encephalopathy. Etiology is toxic metabolic. Continue to monitor. 13. Gastrointestinal and deep vein thrombosis prophylaxis. Continue proton pump inhibitor and sequ ential leg squeezers. 14. Decubitus wound. Wound care consult has been placed. 15. History of congestive heart failure, cardiomyopathy the patient's previous 2D echo showed eject ion fraction of 25% to 30%. We will continue to monitor. Follow up with Cardiology for recommendat ions. Dictated By: LUIS ENRIQUE WAHL/HANK Conf#: [id number] DID#: [id number]
--- NOTE | 2016-10-16 14:43 | CONS ---
Date/Time of Note Date/Time of Note DATE: 10/16/16 TIME: 14:42 Consult Date/Type/Reason Admit Date/Time Oct 15, 2016 at 11:00 Initial Consult Date Type of Consultation: Pulm Subjective Comfortable no events Objective Vital Signs Date Time Temp Pulse Resp B/P Pulse Ox O2 Delivery O2 Flow Rate FiO2 10/16/16 13:20 75 14 99 40 10/16/16 08:06 98.0 140/68 10/16/16 01:46 Mechanical Ventilator Intake and Output 10/15/16 10/15/16 10/16/16 15:00 23:00 07:00 Intake Total 30 ml Output Total 350 ml Balance -320 ml PHYSICAL EXAMINATION: GENERAL: Chronically ill appearing gentleman, appears comfortable at rest, no acute distress. VITAL SIGNS: NECK: Trach site clean and intact. CARDIAC: S1, S2, no added sounds or murmurs. CHEST: Diminished air entry bilaterally. ABDOMEN: Soft, nontender. No guarding or rebound. EXTREMITIES: No cyanosis, clubbing, edema. NEUROLOGIC: Generalized weakness. Results/Medications Result Diagram: 10/16/16 0530 10/16/16 0530 Results 24 hrs Laboratory Tests Test 10/15/16 15:40 10/15/16 17:05 10/15/16 18:13 10/15/16 20:55 Anion Gap 17 H Blood Urea Nitrogen 89 H Calcium Level 8.1 L Carbon Dioxide Level 27 Chloride Level 103 Creatinine 2.06 H Glucose Level 160 Potassium Level 6.1 *H Sodium Level 141 Urine Random Creatinine 28.78 Urine Random Sodium 65 Urine Total Protein Bedside Glucose 163 170 Test 10/16/16 05:30 10/16/16 06:21 10/16/16 09:36 Alanine Aminotransferase (ALT/SGPT) 62 Albumin 2.8 L Alkaline Phosphatase 796 H Anion Gap 16 Aspartate Amino Transf (AST/SGOT) 38 Basophils # 0.0 Basophils % 0.3 Blood Morphology Comment Blood Urea Nitrogen 77 H Calcium Level 7.6 L Carbon Dioxide Level 26 Chloride Level 107 Creatinine 1.70 H Direct Bilirubin 0.00 Eosinophils # 1.0 H Eosinophils % 7.9 H Ferritin 1540.0 H Glucose Level 90 # Hematocrit 23.4 L Hemoglobin 8.0 L Indirect Bilirubin 0.1 Iron Level 60 Lymphocytes # 1.1 Lymphocytes % 8.5 L Magnesium Level 3.1 H Mean Corpuscular Hemoglobin 30.0 Mean Corpuscular Hemoglobin Concent 34.2 Mean Corpuscular Volume 87.7 Mean Platelet Volume 7.8 Monocytes # 0.8 Monocytes % 6.6 Neutrophils # 9.5 H Neutrophils % 76.7 Nucleated Red Blood Cells # 0.0 Nucleated Red Blood Cells % 0.0 Percent Iron Saturation 30 Phosphorus Level 5.2 H Platelet Count 367 Potassium Level 4.6 Prostate Specific Antigen 0.5 Red Blood Count 2.67 L Red Cell Distribution Width 16.0 H Sodium Level 144 Total Bilirubin 0.1 L Total Iron Binding Capacity 197 L Total Protein 6.7 White Blood Count 12.4 #H Bedside Glucose 102 99 Medications Current Medications Acetaminophen (Tylenol Liquid) 650 mg Q6H PRN GTB ELEVATED TEMPERATURE; Start 10/15/16 at 15:30 Ascorbic Acid (Vitamin C) 500 mg DAILY GTB Last administered on 10/16/16 10:51 ; Admin Dose 500 MG; Start 10/16/16 at 09:00 Diphenhydramine HCl (Benadryl) 25 mg Q6H PRN GTB ITCHING; Start 10/15/16 at 15: 30 Acetaminophen/ Hydrocodone Bitart ([place] (10/325)) 1 tab DAILY PRN GTB WOUND CARE; Start 10/15/16 at 15:30 Acetaminophen/ Hydrocodone Bitart ([place] (10/325)) 1 tab Q6H PRN GTB PAIN; Start 10/15/16 at 15:30 Insulin Glargine (Lantus) 12 unit BID SC Last administered on 10/16/16 09:00; Admin Dose 12 UNIT; Start 10/15/16 at 21:00 Isosorbide Dinitrate (Isordil) 20 mg TID GTB Last administered on 10/16/16 10: 52; Admin Dose 20 MG; Start 10/15/16 at 21:00 Lansoprazole (Prevacid) 30 mg BID GTB Last administered on 10/16/16 10:52; Admin Dose 30 MG; Start 10/15/16 at 21:00 Levetiracetam (Keppra Liquid) 1,000 mg BID GTB Last administered on 10/16/16 10:51; Admin Dose 1,000 MG; Start 10/15/16 at 21:00 Metoclopramide HCl (Reglan Liq) 5 mg Q8H PRN GTB NAUSEA AND/OR VOMITING; Start 10/15/16 at 15:30 Multivitamins (Thera-Plus) 5 ml DAILY GTB Last administered on 10/16/16 10:51 ; Admin Dose 5 ML; Start 10/16/16 at 09:00 Sucralfate (Carafate Susp) 1 gm BID GTB Last administered on 10/16/16 10:51; Admin Dose 1 GM; Start 10/15/16 at 21:00 Zinc Sulfate (Zinc Sulfate) 220 mg DAILY GTB Last administered on 10/16/16 10: 52; Admin Dose 220 MG; Start 10/16/16 at 09:00 Miscellaneous Information 1 ea NOTE XX ; Start 10/15/16 at 15:30 Glucose (Glutose) 15 gm Q15M PRN PO DECREASED GLUCOSE; Start 10/15/16 at 15:31 Glucose (Glutose) 22.5 gm Q15M PRN PO DECREASED GLUCOSE; Start 10/15/16 at 15: 30 Dextrose (D50w Syringe) 25 ml Q15M PRN IV DECREASED GLUCOSE; Start 10/15/16 at 15:30 Dextrose (D50w Syringe) 50 ml Q15M PRN IV DECREASED GLUCOSE; Start 10/15/16 at 15:30 Glucagon (Glucagen) 1 mg Q15M PRN IM DECREASED GLUCOSE; Start 10/15/16 at 15:30 Glucose 15 gm 15 gm Q15M PRN BUCCAL DECREASED GLUCOSE; Start 10/15/16 at 15:30 Piperacillin Sod/ Tazobactam Sod (Zosyn 3.375gm/ 100 ml (Pmx)) 100 ml @ 200 mls /hr Q8 IVPB Last administered on 10/16/16 05:06; Admin Dose 200 MLS/HR; Start 10/15/16 at 17:00 Heparin Sodium (Porcine) (Heparin (5000 Units/0.5 ml)) 5,000 unit BID SC Last administered on 10/15/16 21:10; Admin Dose 5,000 UNIT; Start 10/15/16 at 21:00 ; Status Future Hold Diagnostic Test (Pha) 1 ea 1 ea 02 XX ; Start 10/16/16 at 02:00 Albumin Human 100 ml @ 100 mls/hr Q8H IV Last administered on 10/16/16 09:00 ; Admin Dose 100 MLS/HR; Start 10/16/16 at 09:00; Stop 10/17/16 at 01:59 Dextrose (D5W) 1,000 ml @ 40 mls/hr Q24H IV Last administered on 10/16/16 10: 52; Admin Dose 40 MLS/HR; Start 10/16/16 at 09:00 Miscellaneous Information (*Rx Drug Level Order Reminder*) RANDOM VANCOMYCIN LEVEL 1... ONCE ONCE XX ; Start 10/17/16 at 05:00; Stop 10/17/16 at 05:01 Assessment/Plan Chief Complaint/Hosp Course IMPRESSION AND PLAN: 1. Leukocytosis, likely secondary to urinary tract infection with positive leukocyte esterase, bacteria and nitrites. 2. History vent dependent respiratory failure. 3. History of dysphagia. 4. Incomplete data. The patient will require: 1. Continued vent support. 2. Bronchodilators. 3. Broad-spectrum antibiotics pending cultures. 4. DVT and GI prophylaxis. 5. Correction of hyperkalemia per Nephrology. 6. Consider transfer PRBC Problems: DIEGO MARKS MD, [facility] Oct 16, 2016 14:43
[2016-10-16 16:45] LABS: HEMATOCRIT 24.2 % (42.0-52.0); HEMOGLOBIN 7.9 g/dl (14.0-18.0)
--- NOTE | 2016-10-16 17:29 | PN ---
DATE: 10/16/2016 SUBJECTIVE: No acute changes overnight per report. The patient is lying comfortably in bed. He is nonverbal, noncommunicative. WBC today 12.4 with H and H 8 and 23.4, platelets 367, no shift, no b ands. BUN 77, creatinine 1.70. MICROBIOLOGY: Blood cultures have been negative. Urine culture growing gram-negative rods. DIAGNOSTICS: Chest x-ray revealed mild prominence of interstitial markings with small left pleural effusion. INDWELLINGS: Trach, PEG, Mcgill. ANTIMICROBIALS: The patient was started on Zosyn and Vancomycin. PHYSICAL EXAMINATION: GENERAL: Chronically ill-appearing, elderly man who is lying comfortably in bed. HEENT: Head atraumatic, normocephalic. Sclerae anicteric. Buccal mucosa dry. NECK: Supple, trachea midline. CHEST: Rise symmetrical. Breath sounds diminished to bases. HEART: S1, S2. ABDOMEN: Soft, bowel tones present. EXTREMITIES: Without cyanosis. ASSESSMENT: 1. Sepsis, present on admission secondary to #2. 2. Gram-negative rods urinary tract infection. 3. Acute on chronic kidney disease. 4. Respiratory failure. 5. History of seizures and cerebrovascular accident. 6. Diabetes. 7. History of coronary artery disease and severe cardiomyopathy with ejection fraction of 25% to 30 % per previous 2D echo report. PLAN: The patient remains stable, covered with appropriate antimicrobials. We are going to await f or final cultures. Swab nares for methicillin-resistant Staphylococcus aureus and follow recommenda tions of consultants. Dictated By: ELIANA MARTÍNEZ PARKING ENFORCEMENT MANAGER for MOLINA ARAUJO/HANK Conf#: [id number] DID#: [id number]
--- NOTE | 2016-10-16 18:27 | CONS ---
Date/Time of Note Date/Time of Note DATE: 10/16/16 TIME: 18:22 Assessment/Plan Assessment/Plan Additional Assessment/Plan IMPRESSION: 1. Sepsis, most probably urinary tract infection. 2. Nonoliguric renal failure. 3. Anemia. 4. Vent dependent respiratory failure. 5. Seizure disorder. 6. Diabetes mellitus. 7. Coronary artery disease. 8. Encephalopathy. 9.elevated alkaline phosphate Plan continue present care monitor H&H ,alkaline phosphate. Consultation Date/Type/Reason Admit Date/Time Oct 15, 2016 at 11:00 Initial Consult Date Type of Consultation: Pulm 24 HR Interval Summary Constitutional: improved Exam/Review of Systems Vital Signs Vitals Vital Signs Date Time Temp Pulse Resp B/P Pulse Ox O2 Delivery O2 Flow Rate FiO2 10/16/16 17:23 69 16 99 40 10/16/16 16:14 98.6 156/70 10/16/16 01:46 Mechanical Ventilator Intake and Output 10/15/16 10/15/16 10/16/16 15:00 23:00 07:00 Intake Total 30 ml Output Total 350 ml Balance -320 ml Exam Constitutional: alert, oriented, well developed Psych: nl mood/affect, no complaints Head: atraumatic, normocephalic Eyes: EOMI, PERRL, nl conjunctiva, nl lids, nl sclera ENMT: nl external ears & nose, nl lips & teeth, nl nasal mucosa & septum Neck: non-tender, supple Respiratory: clear to auscultation, normal air movement Cardiovascular: nl pulses, regular rate and rhythm Gastrointestinal: nl liver, spleen, non-tender, soft Musculoskeletal: nl extremities to inspection, nl gait and stance Extremities: normal pulses Neurological: FACE BURLER II-XII intact, nl mental status, nl speech, nl strength Skin: nl turgor, No rash or lesions Lymph: nl lymph nodes Results Result Diagram: 10/16/16 1615 10/16/16 0530 Results 24 hrs Laboratory Tests Test 10/15/16 20:55 10/16/16 05:30 10/16/16 06:21 10/16/16 09:36 Bedside Glucose 170 102 99 Alanine Aminotransferase (ALT/SGPT) 62 Albumin 2.8 L Alkaline Phosphatase 796 H Anion Gap 16 Aspartate Amino Transf (AST/SGOT) 38 Basophils # 0.0 Basophils % 0.3 Blood Morphology Comment Blood Urea Nitrogen 77 H Calcium Level 7.6 L Carbon Dioxide Level 26 Chloride Level 107 Creatinine 1.70 H Direct Bilirubin 0.00 Eosinophils # 1.0 H Eosinophils % 7.9 H Ferritin 1540.0 H Glucose Level 90 # Hematocrit 23.4 L Hemoglobin 8.0 L Indirect Bilirubin 0.1 Iron Level 60 Lymphocytes # 1.1 Lymphocytes % 8.5 L Magnesium Level 3.1 H Mean Corpuscular Hemoglobin 30.0 Mean Corpuscular Hemoglobin Concent 34.2 Mean Corpuscular Volume 87.7 Mean Platelet Volume 7.8 Monocytes # 0.8 Monocytes % 6.6 Neutrophils # 9.5 H Neutrophils % 76.7 Nucleated Red Blood Cells # 0.0 Nucleated Red Blood Cells % 0.0 Percent Iron Saturation 30 Phosphorus Level 5.2 H Platelet Count 367 Potassium Level 4.6 Prostate Specific Antigen 0.5 Red Blood Count 2.67 L Red Cell Distribution Width 16.0 H Sodium Level 144 Total Bilirubin 0.1 L Total Iron Binding Capacity 197 L Total Protein 6.7 White Blood Count 12.4 #H Test 10/16/16 16:15 Hematocrit 24.2 L Hemoglobin 7.9 L Medications Medications Current Medications Acetaminophen (Tylenol Liquid) 650 mg Q6H PRN GTB ELEVATED TEMPERATURE; Start 10/15/16 at 15:30 Ascorbic Acid (Vitamin C) 500 mg DAILY GTB Last administered on 10/16/16 10:51 ; Admin Dose 500 MG; Start 10/16/16 at 09:00 Diphenhydramine HCl (Benadryl) 25 mg Q6H PRN GTB ITCHING; Start 10/15/16 at 15: 30 Acetaminophen/ Hydrocodone Bitart ([place] (10/325)) 1 tab DAILY PRN GTB WOUND CARE; Start 10/15/16 at 15:30 Acetaminophen/ Hydrocodone Bitart ([place] (10/325)) 1 tab Q6H PRN GTB PAIN; Start 10/15/16 at 15:30 Insulin Glargine (Lantus) 12 unit BID SC Last administered on 10/16/16 09:00; Admin Dose 12 UNIT; Start 10/15/16 at 21:00 Isosorbide Dinitrate (Isordil) 20 mg TID GTB Last administered on 10/16/16 14: 51; Admin Dose 20 MG; Start 10/15/16 at 21:00 Lansoprazole (Prevacid) 30 mg BID GTB Last administered on 10/16/16 10:52; Admin Dose 30 MG; Start 10/15/16 at 21:00 Levetiracetam (Keppra Liquid) 1,000 mg BID GTB Last administered on 10/16/16 10:51; Admin Dose 1,000 MG; Start 10/15/16 at 21:00 Metoclopramide HCl (Reglan Liq) 5 mg Q8H PRN GTB NAUSEA AND/OR VOMITING; Start 10/15/16 at 15:30 Multivitamins (Thera-Plus) 5 ml DAILY GTB Last administered on 10/16/16 10:51 ; Admin Dose 5 ML; Start 10/16/16 at 09:00 Sucralfate (Carafate Susp) 1 gm BID GTB Last administered on 10/16/16 10:51; Admin Dose 1 GM; Start 10/15/16 at 21:00 Zinc Sulfate (Zinc Sulfate) 220 mg DAILY GTB Last administered on 10/16/16 10: 52; Admin Dose 220 MG; Start 10/16/16 at 09:00 Miscellaneous Information 1 ea NOTE XX ; Start 10/15/16 at 15:30 Glucose (Glutose) 15 gm Q15M PRN PO DECREASED GLUCOSE; Start 10/15/16 at 15:31 Glucose (Glutose) 22.5 gm Q15M PRN PO DECREASED GLUCOSE; Start 10/15/16 at 15: 30 Dextrose (D50w Syringe) 25 ml Q15M PRN IV DECREASED GLUCOSE; Start 10/15/16 at 15:30 Dextrose (D50w Syringe) 50 ml Q15M PRN IV DECREASED GLUCOSE; Start 10/15/16 at 15:30 Glucagon (Glucagen) 1 mg Q15M PRN IM DECREASED GLUCOSE; Start 10/15/16 at 15:30 Glucose 15 gm 15 gm Q15M PRN BUCCAL DECREASED GLUCOSE; Start 10/15/16 at 15:30 Piperacillin Sod/ Tazobactam Sod (Zosyn 3.375gm/ 100 ml (Pmx)) 100 ml @ 200 mls /hr Q8 IVPB Last administered on 10/16/16 14:50; Admin Dose 200 MLS/HR; Start 10/15/16 at 17:00 Heparin Sodium (Porcine) (Heparin (5000 Units/0.5 ml)) 5,000 unit BID SC Last administered on 10/15/16 21:10; Admin Dose 5,000 UNIT; Start 10/15/16 at 21:00 ; Status Future Hold Diagnostic Test (Pha) 1 ea ea 02 XX ; Start 10/16/16 at 02:00 Albumin Human 100 ml @ 100 mls/hr Q8H IV Last administered on 10/16/16 09:00 ; Admin Dose 100 MLS/HR; Start 10/16/16 at 09:00; Stop 10/17/16 at 01:59 Dextrose (D5W) 1,000 ml @ 40 mls/hr Q24H IV Last administered on 10/16/16 10: 52; Admin Dose 40 MLS/HR; Start 10/16/16 at 09:00 Miscellaneous Information (*Rx Drug Level Order Reminder*) RANDOM VANCOMYCIN LEVEL 1... ONCE ONCE XX ; Start 10/17/16 at 05:00; Stop 10/17/16 at 05:01 Insulin Aspart (Novolog Insulin Pen) NOVOLOG *MILD* ALGORI... Q6 SC ; Start at 00:00 KARINE SCHAFER MD Oct 16, 2016 18:26
[2016-10-17] VITALS (28 sets, daily range): BP systolic 129–179; BP diastolic 63–77; PULSE 66–80; RESP 13–20
[2016-10-17] MEDS: ALBUMIN HUMAN 25% 100 ML IV SCH (00:18)
[2016-10-17] MEDS: INSULIN ASPART [NOVOLOG] 3 ML PEN SC SCH ×4 (00:24→18:00)
[2016-10-17] MEDS: ACCUCHECK AT 2AM (Patients on SS coverage) XX SCH (01:58)
[2016-10-17 05:46] LABS: BASOPHIL # 0.1 10^3/ul (0.0-0.1); BASOPHILS % 0.5 % (0.0-2.0); EOSINOPHILS # 1.1 10^3/ul (0.0-0.5); EOSINOPHILS % 8.7 % (0.0-7.0); HEMATOCRIT 22.2 % (42.0-52.0); HEMOGLOBIN 7.5 g/dl (14.0-18.0); LYMPHOCYTES # 1.3 10^3/ul (0.8-2.9); LYMPHOCYTES % 10.5 % (15.0-51.0); MEAN CORPUSCULAR HEMOGLOBIN 29.6 pg (29.0-33.0); MEAN CORPUSCULAR HGB CONC 33.9 g/dl (32.0-37.0); MEAN CORPUSCULAR VOLUME 87.5 fl (82.0-101.0); MEAN PLATELET VOLUME 7.4 fl (7.4-10.4); MONOCYTE # 0.8 10^3/ul (0.3-0.9); MONOCYTES % 6.5 % (0.0-11.0); NEUTROPHIL # 9.3 10^3/ul (1.6-7.5); NEUTROPHILS % 73.8 % (39.0-77.0); PLATELET COUNT 417 10^3/UL (140-440); RED BLOOD COUNT 2.54 10^6/ul (4.70-6.10); RED CELL DISTRIBUTION WIDTH 16.1 % (11.5-14.5); UNCORRECTED WBC 12.6 10^3/ul (4.8-10.8); WHITE BLOOD COUNT 12.6 10^3/ul (4.8-10.8)
[2016-10-17 05:52] LABS: CONDITION 1; LH ANALYZER COMMENTS 1
[2016-10-17 05:53] LABS: POTASSIUM 4.2 mmol/L (3.5-5.1)
[2016-10-17 05:55] LABS: CREATININE 1.66 mg/dl (0.61-1.24)
[2016-10-17 05:56] LABS: CALCIUM 7.9 mg/dl (8.4-10.2); PHOSPHORUS 3.7 mg/dl (2.5-4.9)
[2016-10-17 05:57] LABS: MAGNESIUM 3.2 mg/dl (1.7-2.5)
[2016-10-17] MEDS: PIPER-TAZO 3.375 GM IV (PMX) 100 ML IVPB SCH ×3 (05:58→23:12)
[2016-10-17] MEDS ORDERED: VANCOMYCIN 1 GM in NS 250 ML IVPB ONE (07:30)
[2016-10-17] MEDS: ZINC SULFATE 220 MG CAP GTB SCH (08:22)
[2016-10-17] MEDS: ISOSORBIDE DINITRATE 20 MG TAB GTB SCH ×3 (08:22→20:19)
[2016-10-17] MEDS: LEVETIRACETAM (100 MG/ML) 5ML CUP GTB SCH ×2 (08:22→23:12)
[2016-10-17] MEDS: SUCRALFATE (100 MG/ML) 10ML CUP GTB SCH ×2 (08:22→20:19)
[2016-10-17] MEDS: MULTIVITAMINS 5 ML CUP GTB SCH (08:23)
[2016-10-17] MEDS: ASCORBIC ACID 500 MG TAB GTB SCH (08:23)
[2016-10-17] MEDS: LANSOPRAZOLE 30 MG CAP GTB SCH ×2 (08:23→20:19)
[2016-10-17] MEDS: INSULIN GLARGINE [LANtus] 3 ML PEN SC SCH ×2 (08:36→22:31)
[2016-10-17] MEDS ORDERED: EPOETIN 10000 UNITS/1 ML INJ (ESRD) SC ONE (09:00)
--- NOTE | 2016-10-17 09:49 | PN ---
DATE: 10/17/2016 CARDIOLOGY FOLLOWUP PROGRESS NOTE SUBJECTIVE: Discussed with the staff. Rhythm strip was reviewed. The patient remains in sinus rhy thm with atrial fibrillation, remains on the vent. Discussed with the staff. MEDICATIONS: Reviewed as per medication reconciliation, personally reviewed. PHYSICAL EXAMINATION: VITAL SIGNS: Temperature 98.4, heart rate of 72, blood pressure 129/63, respiratory rate of 13. HEENT: Normocephalic, atraumatic, no acute distress. Pupils are equal. NECK: Status post tracheostomy, on the vent. CARDIOVASCULAR: Regular rate and rhythm. PULMONARY: Mild rhonchi, diffuse. GASTROINTESTINAL: Soft, nontender. No rebound. EXTREMITIES: With positive edema. NEUROLOGIC: Opens his eyes. LABORATORY: WBC of 12.6, hemoglobin 7.5, platelets 417. Sodium 145, potassium 4.2, BUN of 60, crea tinine 1.62, glucose 157. ASSESSMENT AND PLAN: 1. Hypoxemic respiratory failure status post tracheostomy. 2. Acute renal failure. 3. Sepsis. 4. History of cardiomyopathy. 5. Severe anemia. 6. Dysphagia status post percutaneous endoscopic gastrostomy placement. 7. History of seizure disorder. 8. Intracranial hemorrhage causing cerebrovascular accident. 9. History of paroxysmal atrial fibrillation, currently in sinus rhythm. RECOMMENDATIONS: Blood pressure is currently stable. Transfusion as needed. We will continue to m onitor on telemetry. Renal function is close to back to his baseline. Respiratory care will be con tinued. We will continue to monitor on telemetry. Dictated By: JAYDA DO/HANK Conf#: [id number] DID#: [id number] CC: LUIS ENRIQUE STONER DO;*EndCC*
--- NOTE | 2016-10-17 10:15 | PN ---
DATE: 10/17/2016 SUBJECTIVE: The patient is stable, no acute events overnight. No hemoptysis, hematemesis, hematoch ezia. OBJECTIVE: VITAL SIGNS: Blood pressure is 140/64, respirations 19, pulse 73, temperature 98.5. I's AND O'S: The patient had 2.3 liters in, 2 liters out. HEENT: Head is normocephalic. NECK: Supple. HEART: Regular rate. LUNGS: Show diminished breath sounds at the base. ABDOMEN: Soft, nontender to palpation without rebound or guarding. EXTREMITIES: Negative for clubbing, cyanosis. Positive edema. DERMATOLOGIC: No rashes. MUSCULOSKELETAL: No joint effusions. NEUROLOGIC: No change in exam. MEDICATIONS: The patient's medications have been reviewed. LABORATORY DATA: Shows sodium 144, potassium 4.6, chloride 107, BUN 77, creatinine 1.7, calcium 7.6 , phosphorus 5.2, magnesium 3.1. White count 12.6, hemoglobin 7.5, hematocrit 22.2, platelet count is 417. ASSESSMENT AND PLAN: 1. Severe sepsis, etiology secondary to urinary tract infection and bacteremia. The patient's urin e cultures, blood cultures growing out gram-negative rods. At this point, continue current treatmen t plan with IV antibiotics, follow up with infectious disease for recommendations. 2. Nonoliguric acute kidney injury on top of chronic kidney disease stage IIIB/IV with a baseline c reatinine of 1.5 mg/dL. The etiology of acute kidney injury is multifactorial secondary to sepsis, hemodynamics. The patient's renal function is slowly improving. Continue current treatment plan, s upportive care, renally dose all meds. The patient is status post IV fluids. 3. Hyperkalemia, resolved. 4. Mineral bone disorder. The patient is hypophosphatemic. Will anticipate starting the patient on phos binders. Will monitor closely. 5. Hypermagnesemia secondary to acute kidney injury. We will continue to monitor. 6. Anemia of chronic disease. The patient's iron stores are replete. The patient's hemoglobin lev els have been trending down. There is no obvious evidence of gastrointestinal bleed. Stool for occu lt blood has been sent. Will give the patient 1 dose of Epogen and monitor. 7. Ventilator dependent respiratory failure. Vent settings and ABG has been reviewed. 8. Dysphagia status post PEG tube, tube feed. 9. Seizure disorder. Continue Keppra. 10. History of cerebrovascular accident. The patient appears to be at baseline. Continue to monit or. Consider CT scan if there is change in clinical status. 11. Coronary artery disease. Continue medical management. Follow up with cardiology. 12. Diabetes, continue Accu-Cheks and sliding scale. 13. Acute on chronic encephalopathy. Etiology is toxic metabolic. Continue to monitor. 14. Decubitus wound. Will continue wound care. 15. History of congestive heart failure, cardiomyopathy. Continue medical management. Follow up w ith cardiology recommendations. 16. GI and deep venous thrombosis prophylaxis. Continue proton pump inhibitor and sequential leg s queezers. Dictated By: LUIS ENRIQUE WAHL/HANK Conf#: [id number] DID#: [id number]
[2016-10-17] MEDS ORDERED: COLLAGENASE 30 GM TUBE TOP PRN (11:30)
--- NOTE | 2016-10-17 14:26 | CONS ---
Date/Time of Note Date/Time of Note DATE: 10/17/16 TIME: 14:23 Consult Date/Type/Reason Admit Date/Time Oct 15, 2016 at 11:00 Initial Consult Date Type of Consultation: ID Subjective No fevers, lying comfortably in bed, nad Objective Vital Signs Date Time Temp Pulse Resp B/P Pulse Ox O2 Delivery O2 Flow Rate FiO2 10/17/16 12:30 66 10/17/16 12:06 98.4 18 142/67 98 10/17/16 08:35 30 10/16/16 01:46 Mechanical Ventilator Intake and Output 10/16/16 10/16/16 10/17/16 15:00 23:00 07:00 Intake Total 100 ml 410 ml 1820 ml Output Total 1200 ml 800 ml Balance 100 ml -790 ml 1020 ml Results/Medications Result Diagram: 10/17/16 0500 10/17/16 0500 Results 24 hrs Laboratory Tests Test 10/16/16 16:15 10/16/16 18:29 10/16/16 21:59 10/17/16 00:14 Hematocrit 24.2 L Hemoglobin 7.9 L Bedside Glucose 146 172 189 Test 10/17/16 01:30 10/17/16 05:00 10/17/16 05:54 10/17/16 08:18 Stool Occult Blood NEGATIVE Anion Gap 15 Basophils # 0.1 Basophils % 0.5 Blood Morphology Comment Blood Urea Nitrogen 60 H Calcium Level 7.9 L Carbon Dioxide Level 26 Chloride Level 108 Creatinine 1.66 H Eosinophils # 1.1 H Eosinophils % 8.7 H Glucose Level 157 Hematocrit 22.2 L Hemoglobin 7.5 L Lymphocytes # 1.3 Lymphocytes % 10.5 L Magnesium Level 3.2 H Mean Corpuscular Hemoglobin 29.6 Mean Corpuscular Hemoglobin Concent 33.9 Mean Corpuscular Volume 87.5 Mean Platelet Volume 7.4 Monocytes # 0.8 Monocytes % 6.5 Neutrophils # 9.3 H Neutrophils % 73.8 Nucleated Red Blood Cells # 0.0 Nucleated Red Blood Cells % 0.0 Phosphorus Level 3.7 Platelet Count 417 Potassium Level 4.2 Random Vancomycin Level 12.8 Red Blood Count 2.54 L Red Cell Distribution Width 16.1 H Sodium Level 145 H White Blood Count 12.6 H Bedside Glucose 186 163 Test 10/17/16 11:51 Bedside Glucose 170 Medications Current Medications Acetaminophen (Tylenol Liquid) 650 mg Q6H PRN GTB ELEVATED TEMPERATURE; Start 10/15/16 at 15:30 Ascorbic Acid (Vitamin C) 500 mg DAILY GTB Last administered on 10/17/16 08:23 ; Admin Dose 500 MG; Start 10/16/16 at 09:00 Diphenhydramine HCl (Benadryl) 25 mg Q6H PRN GTB ITCHING; Start 10/15/16 at 15: 30 Acetaminophen/ Hydrocodone Bitart ([place] (10/325)) 1 tab DAILY PRN GTB WOUND CARE; Start 10/15/16 at 15:30 Acetaminophen/ Hydrocodone Bitart ([place] (10/325)) 1 tab Q6H PRN GTB PAIN; Start 10/15/16 at 15:30 Insulin Glargine (Lantus) 12 unit BID SC Last administered on 10/17/16 08:36; Admin Dose 12 UNIT; Start 10/15/16 at 21:00 Isosorbide Dinitrate (Isordil) 20 mg TID GTB Last administered on 10/17/16 13: 18; Admin Dose 20 MG; Start 10/15/16 at 21:00 Lansoprazole (Prevacid) 30 mg BID GTB Last administered on 10/17/16 08:23; Admin Dose 30 MG; Start 10/15/16 at 21:00 Levetiracetam (Keppra Liquid) 1,000 mg BID GTB Last administered on 10/17/16 08:22; Admin Dose 1,000 MG; Start 10/15/16 at 21:00 Metoclopramide HCl (Reglan Liq) 5 mg Q8H PRN GTB NAUSEA AND/OR VOMITING; Start 10/15/16 at 15:30 Multivitamins (Thera-Plus) 5 ml DAILY GTB Last administered on 10/17/16 08:23 ; Admin Dose 5 ML; Start 10/16/16 at 09:00 Sucralfate (Carafate Susp) 1 gm BID GTB Last administered on 10/17/16 08:22; Admin Dose 1 GM; Start 10/15/16 at 21:00 Zinc Sulfate (Zinc Sulfate) 220 mg DAILY GTB Last administered on 10/17/16 08: 22; Admin Dose 220 MG; Start 10/16/16 at 09:00 Miscellaneous Information 1 ea NOTE XX ; Start 10/15/16 at 15:30 Glucose (Glutose) 15 gm Q15M PRN PO DECREASED GLUCOSE; Start 10/15/16 at 15:31 Glucose (Glutose) 22.5 gm Q15M PRN PO DECREASED GLUCOSE; Start 10/15/16 at 15: 30 Dextrose (D50w Syringe) 25 ml Q15M PRN IV DECREASED GLUCOSE; Start 10/15/16 at 15:30 Dextrose (D50w Syringe) 50 ml Q15M PRN IV DECREASED GLUCOSE; Start 10/15/16 at 15:30 Glucagon (Glucagen) 1 mg Q15M PRN IM DECREASED GLUCOSE; Start 10/15/16 at 15:30 Glucose 15 gm 15 gm Q15M PRN BUCCAL DECREASED GLUCOSE; Start 10/15/16 at 15:30 Piperacillin Sod/ Tazobactam Sod (Zosyn 3.375gm/ 100 ml (Pmx)) 100 ml @ 200 mls /hr Q8 IVPB Last administered on 10/17/16 13:30; Admin Dose 200 MLS/HR; Start 10/15/16 at 17:00 Heparin Sodium (Porcine) (Heparin (5000 Units/0.5 ml)) 5,000 unit BID SC Last administered on 10/15/16 21:10; Admin Dose 5,000 UNIT; Start 10/15/16 at 21:00 ; Status Future Hold Diagnostic Test (Pha) (Accucheck) 1 ea 02 XX ; Start 10/16/16 at 02:00 Insulin Aspart (Novolog Insulin Pen) NOVOLOG *MILD* ALGORI... Q6 SC Last administered on 10/17/16 12:00; Admin Dose 1 UNIT; Start 10/17/16 at 00:00 Assessment/Plan Chief Complaint/Hosp Course MICROBIOLOGY: Blood cultures + Staph. Urine culture growing MDR PSA. DIAGNOSTICS: Chest x-ray revealed mild prominence of interstitial markings with small left pleural effusion. INDWELLINGS: Trach, PEG, Mcgill. ANTIMICROBIALS: Zosyn and Vancomycin. PHYSICAL EXAMINATION: GENERAL: Chronically ill-appearing, elderly man who is lying comfortably in bed. HEENT: Head atraumatic, normocephalic. Sclerae anicteric. Buccal mucosa dry. NECK: Supple, trachea midline. CHEST: Rise symmetrical. Breath sounds diminished to bases. HEART: S1, S2. ABDOMEN: Soft, bowel tones present. EXTREMITIES: Without cyanosis. ASSESSMENT: 1. Sepsis, present on admission secondary to #2. 2. PSA urinary tract infection. 3. Acute on chronic kidney disease. 4. Respiratory failure. 5. History of seizures and cerebrovascular accident. 6. Diabetes. 7. History of coronary artery disease and severe cardiomyopathy with ejection fraction of 25% to 30% per previous 2D echo report. 8. Staph bacteremia, poss contaminant PLAN: The patient remains stable, covered with appropriate antimicrobials. Will repeat bld cx. DW staff Problems: ELIANA MARTÍNEZ NP Oct 17, 2016 14:26
[2016-10-17 14:49] LABS: HEMATOCRIT 21.4 % (42.0-52.0)
--- NOTE | 2016-10-17 14:59 | PN ---
DATE: 10/17/2016 SUBJECTIVE: The patient remains stable, clinically unchanged. VITAL SIGNS: Temperature 98, pulse is 77, blood pressure 142/66, O2 saturation 96% on 30% FIO2%. NECK: Trach site clean, intact. CARDIAC: S1, S2, no added sounds or murmurs. CHEST: Diminished air entry bilaterally. ABDOMEN: Soft, nontender. No guarding or rebound. EXTREMITIES: No cyanosis, clubbing, edema. NEUROLOGIC: Generalized weakness. LABORATORY DATA: White count 12.6, hemoglobin 7.5, platelets 417. BUN 60, creatinine 1.66. IMPRESSION: 1. Ventilator-dependent respiratory failure. 2. Anemia of chronic disease exacerbated by fluid hydration. 3. History of congestive cardiac failure. 4. Chronic encephalopathy with seizure disorder. 5. History of cerebrovascular accident. PLAN: The patient should: 1. Continue antibiotics. 2. Consider transfusion 1 unit packed red blood cells. 3. Discharge planning okay from pulmonary standpoint. Dictated By: DIEGO LOYD/HANK Conf#: [id number] DID#: [id number]
[2016-10-17 17:31] LABS: MICROALBUMIN 242.7 mg/dL
--- NOTE | 2016-10-17 21:52 | CONS ---
Date/Time of Note Date/Time of Note DATE: 10/17/16 TIME: 21:51 Assessment/Plan Assessment/Plan Additional Assessment/Plan IMPRESSION: 1. Sepsis, most probably urinary tract infection. 2. Nonoliguric renal failure.improving 3. Anemia.no evidence of active gi bleeding 4. Vent dependent respiratory failure. 5. Seizure disorder. 6. Diabetes mellitus. 7. Coronary artery disease. 8. Encephalopathy. 9.elevated alkaline phosphate Plan continue present care monitor H&H ,alkaline phosphate. Consultation Date/Type/Reason Admit Date/Time Oct 15, 2016 at 11:00 Type of Consultation: ID [id number] HR Interval Summary Constitutional: no complaints Exam/Review of Systems Vital Signs Vitals Vital Signs Date Time Temp Pulse Resp B/P Pulse Ox O2 Delivery O2 Flow Rate FiO2 10/17/16 21:27 81 14 100 30 10/17/16 20:11 98.2 179/77 10/16/16 01:46 Mechanical Ventilator Intake and Output 10/16/16 10/16/16 10/17/16 15:00 23:00 07:00 Intake Total 100 ml 410 ml 1820 ml Output Total 1200 ml 800 ml Balance 100 ml -790 ml 1020 ml Exam Constitutional: alert, oriented, well developed Psych: nl mood/affect, no complaints Head: atraumatic, normocephalic Eyes: EOMI, PERRL, nl conjunctiva, nl lids, nl sclera ENMT: nl external ears & nose, nl lips & teeth, nl nasal mucosa & septum Neck: non-tender, supple Respiratory: clear to auscultation, normal air movement Cardiovascular: nl pulses, regular rate and rhythm Gastrointestinal: nl liver, spleen, non-tender, soft Musculoskeletal: nl extremities to inspection, nl gait and stance Extremities: normal pulses Neurological: TELESERVICES REPRESENTATIVE II-XII intact, nl mental status, nl speech, nl strength Skin: nl turgor, No rash or lesions Lymph: nl lymph nodes Results Result Diagram: 10/17/16 1430 10/17/16 0500 Results 24 hrs Laboratory Tests Test 10/16/16 21:59 10/17/16 00:14 10/17/16 01:30 10/17/16 05:00 Bedside Glucose 172 189 Stool Occult Blood NEGATIVE Anion Gap 15 Basophils # 0.1 Basophils % 0.5 Blood Morphology Comment Blood Urea Nitrogen 60 H Calcium Level 7.9 L Carbon Dioxide Level 26 Chloride Level 108 Creatinine 1.66 H Eosinophils # 1.1 H Eosinophils % 8.7 H Glucose Level 157 Hematocrit 22.2 L Hemoglobin 7.5 L Lymphocytes # 1.3 Lymphocytes % 10.5 L Magnesium Level 3.2 H Mean Corpuscular Hemoglobin 29.6 Mean Corpuscular Hemoglobin Concent 33.9 Mean Corpuscular Volume 87.5 Mean Platelet Volume 7.4 Monocytes # 0.8 Monocytes % 6.5 Neutrophils # 9.3 H Neutrophils % 73.8 Nucleated Red Blood Cells # 0.0 Nucleated Red Blood Cells % 0.0 Phosphorus Level 3.7 Platelet Count 417 Potassium Level 4.2 Random Vancomycin Level 12.8 Red Blood Count 2.54 L Red Cell Distribution Width 16.1 H Sodium Level 145 H White Blood Count 12.6 H Test 10/17/16 05:54 10/17/16 08:18 10/17/16 11:51 10/17/16 14:30 Bedside Glucose 186 163 170 Hematocrit 21.4 L Hemoglobin 7.0 L Test 10/17/16 18:14 Bedside Glucose 174 Medications Medications Current Medications Acetaminophen (Tylenol Liquid) 650 mg Q6H PRN GTB ELEVATED TEMPERATURE; Start 10/15/16 at 15:30 Ascorbic Acid (Vitamin C) 500 mg DAILY GTB Last administered on 10/17/16 08:23 ; Admin Dose 500 MG; Start 10/16/16 at 09:00 Diphenhydramine HCl (Benadryl) 25 mg Q6H PRN GTB ITCHING; Start 10/15/16 at 15: 30 Acetaminophen/ Hydrocodone Bitart ([place] (10/325)) 1 tab DAILY PRN GTB WOUND CARE; Start 10/15/16 at 15:30 Acetaminophen/ Hydrocodone Bitart ([place] (10/325)) 1 tab Q6H PRN GTB PAIN; Start 10/15/16 at 15:30 Insulin Glargine (Lantus) 12 unit BID SC Last administered on 10/17/16 08:36; Admin Dose 12 UNIT; Start 10/15/16 at 21:00 Isosorbide Dinitrate (Isordil) 20 mg TID GTB Last administered on 10/17/16 20: 19; Admin Dose 20 MG; Start 10/15/16 at 21:00 Lansoprazole (Prevacid) 30 mg BID GTB Last administered on 10/17/16 20:19; Admin Dose 30 MG; Start 10/15/16 at 21:00 Levetiracetam (Keppra Liquid) 1,000 mg BID GTB Last administered on 10/17/16 08:22; Admin Dose 1,000 MG; Start 10/15/16 at 21:00 Metoclopramide HCl (Reglan Liq) 5 mg Q8H PRN GTB NAUSEA AND/OR VOMITING; Start 10/15/16 at 15:30 Multivitamins (Thera-Plus) 5 ml DAILY GTB Last administered on 10/17/16 08:23 ; Admin Dose 5 ML; Start 10/16/16 at 09:00 Sucralfate (Carafate Susp) 1 gm BID GTB Last administered on 10/17/16 20:19; Admin Dose 1 GM; Start 10/15/16 at 21:00 Zinc Sulfate (Zinc Sulfate) 220 mg DAILY GTB Last administered on 10/17/16 08: 22; Admin Dose 220 MG; Start 10/16/16 at 09:00 Miscellaneous Information 1 ea NOTE XX ; Start 10/15/16 at 15:30 Glucose (Glutose) 15 gm Q15M PRN PO DECREASED GLUCOSE; Start 10/15/16 at 15:31 Glucose (Glutose) 22.5 gm Q15M PRN PO DECREASED GLUCOSE; Start 10/15/16 at 15: 30 Dextrose (D50w Syringe) 25 ml Q15M PRN IV DECREASED GLUCOSE; Start 10/15/16 at 15:30 Dextrose (D50w Syringe) 50 ml Q15M PRN IV DECREASED GLUCOSE; Start 10/15/16 at 15:30 Glucagon (Glucagen) 1 mg Q15M PRN IM DECREASED GLUCOSE; Start 10/15/16 at 15:30 Glucose 15 gm 15 gm Q15M PRN BUCCAL DECREASED GLUCOSE; Start 10/15/16 at 15:30 Piperacillin Sod/ Tazobactam Sod (Zosyn 3.375gm/ 100 ml (Pmx)) 100 ml @ 200 mls /hr Q8 IVPB Last administered on 10/17/16 13:30; Admin Dose 200 MLS/HR; Start 10/15/16 at 17:00 Heparin Sodium (Porcine) (Heparin (5000 Units/0.5 ml)) 5,000 unit BID SC Last administered on 10/15/16 21:10; Admin Dose 5,000 UNIT; Start 10/15/16 at 21:00 ; Status Future Hold Diagnostic Test (Pha) (Accucheck) 02 XX ; Start 10/16/16 at 02:00 Insulin Aspart (Novolog Insulin Pen) NOVOLOG *MILD* ALGORI... Q6 SC Last administered on 10/17/16 18:00; Admin Dose 1 UNIT; Start 10/17/16 at 00:00 KARINE SCHAFER MD Oct 17, 2016 21:52
[2016-10-18] VITALS (26 sets, daily range): BP systolic 123–160; BP diastolic 60–77; PULSE 68–78; RESP 14–20
[2016-10-18] MEDS: INSULIN ASPART [NOVOLOG] 3 ML PEN SC SCH ×3 (00:03→12:40)
[2016-10-18] MEDS: AMLODIPINE 10 MG TAB GTB SCH ×2 (00:41→08:39)
[2016-10-18] MEDS: ACCUCHECK AT 2AM (Patients on SS coverage) XX SCH (01:44)
[2016-10-18] MEDS: PIPER-TAZO 3.375 GM IV (PMX) 100 ML IVPB SCH ×2 (06:00→14:02)
[2016-10-18 06:24] LABS: BASOPHILS % 0.3 % (0.0-2.0); EOSINOPHILS # 1.1 10^3/ul (0.0-0.5); EOSINOPHILS % 8.3 % (0.0-7.0); HEMATOCRIT 29.3 % (42.0-52.0); HEMOGLOBIN 9.6 g/dl (14.0-18.0); LYMPHOCYTES # 1.6 10^3/ul (0.8-2.9); LYMPHOCYTES % 12.3 % (15.0-51.0); MEAN CORPUSCULAR HEMOGLOBIN 28.7 pg (29.0-33.0); MEAN CORPUSCULAR HGB CONC 32.8 g/dl (32.0-37.0); MEAN CORPUSCULAR VOLUME 87.7 fl (82.0-101.0); MEAN PLATELET VOLUME 7.2 fl (7.4-10.4); MONOCYTE # 1.1 10^3/ul (0.3-0.9); MONOCYTES % 8.2 % (0.0-11.0); NEUTROPHIL # 9.1 10^3/ul (1.6-7.5); NEUTROPHILS % 70.9 % (39.0-77.0); PLATELET COUNT 423 10^3/UL (140-440); RED BLOOD COUNT 3.34 10^6/ul (4.70-6.10); UNCORRECTED WBC 12.8 10^3/ul (4.8-10.8); WHITE BLOOD COUNT 12.8 10^3/ul (4.8-10.8)
[2016-10-18 06:31] LABS: ALBUMIN 2.9 g/dl (3.3-4.9)
[2016-10-18 06:32] LABS: MAGNESIUM 2.9 mg/dl (1.7-2.5); PHOSPHORUS 3.2 mg/dl (2.5-4.9); POTASSIUM 4.3 mmol/L (3.5-5.1)
[2016-10-18 06:34] LABS: ALBUMIN/GLOBULIN RATIO 0.85; BILIRUBIN,INDIRECT 0.2 mg/dl (0-1.1); BILIRUBIN,TOTAL 0.2 mg/dl (0.2-1.3); CREATININE 1.44 mg/dl (0.61-1.24); TOTAL PROTEIN 6.3 g/dl (6.1-8.1)
[2016-10-18 06:35] LABS: CALCIUM 7.8 mg/dl (8.4-10.2)
[2016-10-18 06:49] LABS: CONDITION 1; LH ANALYZER COMMENTS 1
[2016-10-18] MEDS: LEVETIRACETAM (100 MG/ML) 5ML CUP GTB SCH (08:29)
[2016-10-18] MEDS: SUCRALFATE (100 MG/ML) 10ML CUP GTB SCH (08:30)
[2016-10-18] MEDS: MULTIVITAMINS 5 ML CUP GTB SCH (08:30)
[2016-10-18] MEDS: ISOSORBIDE DINITRATE 20 MG TAB GTB SCH ×2 (08:30→12:37)
[2016-10-18] MEDS: ASCORBIC ACID 500 MG TAB GTB SCH (08:30)
[2016-10-18] MEDS: ZINC SULFATE 220 MG CAP GTB SCH (08:31)
[2016-10-18] MEDS: LANSOPRAZOLE 30 MG CAP GTB SCH (08:31)
[2016-10-18] MEDS: INSULIN GLARGINE [LANtus] 3 ML PEN SC SCH (08:45)
[2016-10-18] MEDS ORDERED: FUROSEMIDE 40 MG TAB GTB SCH (09:00)
--- NOTE | 2016-10-18 09:55 | PN ---
DATE: 10/18/2016 SUBJECTIVE: The patient yesterday was transfused two units of PRBC. Tolerated well. No complicati ons noted. No hemoptysis, hematemesis or hematochezia. OBJECTIVE: VITAL SIGNS: Blood pressure is currently 125/60, respiration 18, pulse 72, temperature 98.3. I'S AND O'S: The patient had 3 L in, 1.3 liters out. HEENT: Head is normocephalic. NECK: Supple. HEART: Regular rate. LUNGS: Show diminished breath sounds at the base, mild rhonchi. ABDOMEN: Soft, nontender to palpation. No rebound or guarding. EXTREMITIES: Negative for clubbing, cyanosis. Trace edema. DERMATOLOGIC: No rashes. MUSCULOSKELETAL: No joint effusions. NEUROLOGIC: No change in exam. MEDICATIONS: The patient's medications have been reviewed. LABORATORY DATA: Shows sodium 143, potassium 4.3, chloride 107, BUN 58, creatinine 1.44. White cou nt 12.8, hemoglobin 9.6, hematocrit 29.3, platelet count is 423. ASSESSMENT AND PLAN: 1. Severe sepsis secondary etiology secondary to urinary tract infection and bacteremia. The patie nt's urine culture, blood culture grew out gram-negative rods. At this point, continue current shital tment plan. Continue IV antibiotics. The patient is clinically responding. Follow up with Infecti ous Disease for further recommendations. 2. Nonoliguric acute kidney injury on top of chronic kidney disease stage IIIB/IV with a baseline c reatinine of 1.5 mg/dL. Etiology of acute kidney injury is secondary to hemodynamics, sepsis. Taylor l function has returned back to baseline. Continue current treatment plan, supportive care, renally dose all meds, avoid nephrotoxins. 3. Anemia, etiology unclear, possibly from chronic disease. The patient's stool for occult blood w ere negative. The patient was transfused 2 units of PRBC. The patient is status post Epogen. We w ill continue to monitor H and H levels. 4. Mineral bone disorder. Continue to monitor calcium and phosphorus levels. 5. Hypomagnesemia secondary to acute kidney injury, improved. 6. Ventilatory dependent respiratory failure. Vent settings have been reviewed. ABG is reviewed. Continue to monitor. 7. Dysphagia. Status post PEG tube. Continue tube feed. 8. Elevated alkaline phosphatase, transaminitis. Underlying etiology is unclear. LFTs and alkalin e phosphatase levels have been improving. We will continue to monitor. We will follow up with GI fo r further recommendations. 9. Seizure disorder. Continue Keppra. 10. History of cerebrovascular accident. The patient is currently at baseline. No clinical change . We will monitor closely. If any change in clinical status we will order CT scan. 11. Coronary artery disease. Continue current medical management. 12. Diabetes. Continue Accu-Cheks and sliding scale. 13. Acute on chronic encephalopathy. Etiology is toxic metabolic. Continue to monitor. 14. Decubitus wound. Continue wound care. 15. History of congestive heart failure, cardiomyopathy. Continue medical management. Continue di uretic therapy. Follow up with Cardiology for recommendations. 16. Initiate GI and DVT prophylaxis. Continue proton pump inhibitor and sequential leg squeezers. Dictated By: LUIS ENRIQUE WAHL/NTS Conf#: [id number] DID#: [id number]
--- NOTE | 2016-10-18 10:51 | PN ---
DATE: 10/18/2016 CARDIOLOGY FOLLOWUP SUBJECTIVE: Discussed with the staff. Rhythm strip is reviewed. The patient remains in sinus rhyt hm. No more episodes noted, no evidence of atrial fibrillation noted. The patient is status post t racheostomy, is still on the vent. Nonverbal. MEDICATIONS: Reviewed as per medication reconciliation, was personally reviewed. PHYSICAL EXAMINATION: VITAL SIGNS: Temperature 98.3, heart rate of 77, blood pressure 125/60, respiration rate of 18, sat urating 99%. HEENT: Normocephalic, atraumatic. Pupils are equal. NECK: Status post tracheostomy, on the vent. CARDIOVASCULAR: Regular rate and rhythm, systolic murmur. PULMONARY: Minimal rhonchi. GASTROINTESTINAL: Soft, nontender. EXTREMITIES: With lower extremity edema. NEUROLOGIC: Opens his eyes. Unable to move on one side, he is not answering my questions. LABORATORY: WBC of 12.8, hemoglobin 9.6, platelets of 423. Sodium 143, potassium 4.3, BUN of 58, c reatinine 1.44, glucose 175. ASSESSMENT AND PLAN: 1. Congestive heart failure. 2. Severe cardiomyopathy. 3. Acute renal failure. 4. Hypoxemic respiratory failure, status post tracheostomy, on vent dependent. 5. Status post sepsis. 6. Anemia. 7. Dysphagia, status post PEG placement. 8. History of hypertension, intracranial hemorrhage. 9. History of paroxysmal atrial fibrillation, currently in sinus rhythm. RECOMMENDATIONS: I will stop the patient's amlodipine and instead put her on hydralazine, a c ombination given his congestive heart failure given his cardiomyopathy. Respiratory care will be co ntinued. Follow with GI recommendation. Follow up with renal function as well. Continue to monito r on telemetry. Dictated By: JAYDA DO/HANK Conf#: [id number] DID#: [id number]
--- NOTE | 2016-10-18 13:53 | PN ---
DATE: 10/18/2016 PULMONARY FOLLOWUP SUBJECTIVE: Chart reviewed. No significant events noted. Patient was transfused packed RBC yester day. The patient remains on ventilator on 30% FIO2, saturating 99%. PHYSICAL EXAMINATION: VITAL SIGNS: Blood pressure 122/60, pulse 72, respirations 18, temperature 98.5. HEENT: Pupils are equal and reactive to light. NECK: Supple, no JVD noted, no cervical lymphadenopathy noted, no carotid bruits heard. Tracheosto my site clear. LUNGS: Few scattered rhonchi. CARDIOVASCULAR: S1, S2 normal. ABDOMEN: Soft, nontender. No organomegaly or masses noted. EXTREMITIES: No clubbing or cyanosis noted. NEUROLOGIC: No changes. LABORATORY DATA: WBC 12.8, hemoglobin 9.6, hematocrit 29.3, platelets 423. Sodium 143, potassium 4 .3, chloride 107, CO2 of 25, BUN 58, creatinine 1.44, glucose 175. Stool for occult blood negative. Urine culture positive for Pseudomonas aeruginosa. IMPRESSION: 1. Ventilator-dependent respiratory failure, hypoxemic. 2. Anemia, status post transfusion. 3. History of congestive heart failure. 4. Chronic encephalopathy. 5. Seizure disorder. 6. History of cerebrovascular accidents. 7. Status post sepsis. 8. Urinary tract infection. 9. Acute kidney injury. RECOMMENDATIONS: 1. Continue antibiotics. 2. Continue ventilator support. 3. GI recommendations noted. 4. Nephrology followup noted. 5. Followup labs. Dictated By: MACARIO QUINN MD, MA/HANK Conf#: [id number] DID#: [id number]
--- NOTE | 2016-10-18 14:00 | PN ---
DATE: 10/18/2016 SUBJECTIVE: No acute changes. The patient is lying comfortably in bed. No fevers. LABORATORY: WBC today 12.8, neutrophils 70.9, no bands. BUN 58, creatinine 1.44. MICROBIOLOGY: Urine culture grew Pseudomonas. Blood cultures grew coag-negative staph species on a dmission. Repeat blood cultures pending. ANTIMICROBIALS: 1. Vancomycin IV. 2. Zosyn. INDWELLINGS: Trach, PEG, Mcgill. PHYSICAL EXAMINATION: GENERAL: This is a fragile, chronically ill-appearing, elderly man who is noncommunicative and in n o distress. HEENT: Head atraumatic, normocephalic. Sclerae anicteric. Buccal mucosa dry. NECK: Supple. CHEST: Rise symmetrical. Breath sounds diminished. HEART: S1, S2. ABDOMEN: Soft, bowel tones present. EXTREMITIES: Without cyanosis. ASSESSMENT: 1. Sepsis, resolving. 2. Healthcare-associated pneumonia. 3. Pseudomonas aeruginosa urinary tract infection. 4. Coagulase-negative staph bacteremia on admission, likely contaminant. 5. Chronic encephalopathy. 6. Cardiomyopathy with ejection fraction of 25% to 30%. 7. Diabetes. PLAN: The patient remains stable pending repeat blood cultures, continue antibiotics, follow recomm endations of specialist. Dictated By: ELIANA MARTÍNEZ [employer] for MOLINA ARAUJO/HANK Conf#: [id number] DID#: [id number]
--- NOTE | 2016-10-18 16:21 | CONS ---
Date/Time of Note Date/Time of Note DATE: 10/18/16 TIME: 16:19 Assessment/Plan Assessment/Plan Additional Assessment/Plan IMPRESSION: 1. Sepsis, most probably urinary tract infection.and pneumonia 2. Nonoliguric renal failure.improving 3. Anemia.no evidence of active gi bleeding ,chronic disease 4. Vent dependent respiratory failure. 5. Seizure disorder. 6. Diabetes mellitus. 7. Coronary artery disease. 8. Encephalopathy. 9.elevated alkaline phosphate,slowly coming down Plan continue present care monitor H&H ,alkaline phosphate. Consultation Date/Type/Reason Admit Date/Time Oct 15, 2016 at 11:00 Type of Consultation: ID [id number] HR Interval Summary Subjective hx not possible: pt non-verbal Constitutional: improved Exam/Review of Systems Vital Signs Vitals Vital Signs Date Time Temp Pulse Resp B/P Pulse Ox O2 Delivery O2 Flow Rate FiO2 10/18/16 15:55 98.5 80 19 137/64 99 10/18/16 15:40 30 10/18/16 02:20 Mechanical Ventilator Intake and Output 10/17/16 10/17/16 10/18/16 15:00 23:00 07:00 Intake Total 100 ml 1220 ml 2040 ml Output Total 650 ml 700 ml Balance 100 ml 570 ml 1340 ml Exam Constitutional: alert, oriented, well developed Psych: nl mood/affect, no complaints Head: atraumatic, normocephalic Eyes: EOMI, PERRL, nl conjunctiva, nl lids, nl sclera ENMT: nl external ears & nose, nl lips & teeth, nl nasal mucosa & septum Neck: non-tender, supple Respiratory: clear to auscultation, normal air movement Cardiovascular: nl pulses, regular rate and rhythm Gastrointestinal: nl liver, spleen, non-tender, soft Musculoskeletal: nl extremities to inspection, nl gait and stance Extremities: normal pulses Neurological: [employer] II-XII intact, nl mental status, nl speech, nl strength Skin: nl turgor, No rash or lesions Lymph: nl lymph nodes Results Result Diagram: 10/18/16 0530 10/18/16 0530 Results 24 hrs Laboratory Tests Test 10/17/16 18:14 10/17/16 21:58 10/17/16 23:46 10/18/16 05:30 Bedside Glucose 174 193 180 Alanine Aminotransferase (ALT/SGPT) 54 Albumin 2.9 L Albumin/Globulin Ratio 0.85 Alkaline Phosphatase 646 H Anion Gap 15 Aspartate Amino Transf (AST/SGOT) 46 Basophils # 0.0 Basophils % 0.3 Blood Morphology Comment Blood Urea Nitrogen 58 H Calcium Level 7.8 L Carbon Dioxide Level 25 Chloride Level 107 Creatinine 1.44 H Direct Bilirubin 0.00 Eosinophils # 1.1 H Eosinophils % 8.3 H Globulin 3.40 H Glucose Level 175 Hematocrit 29.3 #L Hemoglobin 9.6 #L Indirect Bilirubin 0.2 Lymphocytes # 1.6 Lymphocytes % 12.3 L Magnesium Level 2.9 H Mean Corpuscular Hemoglobin 28.7 L Mean Corpuscular Hemoglobin Concent 32.8 Mean Corpuscular Volume 87.7 Mean Platelet Volume 7.2 L Monocytes # 1.1 H Monocytes % 8.2 Neutrophils # 9.1 H Neutrophils % 70.9 Nucleated Red Blood Cells # 0.0 Nucleated Red Blood Cells % 0.0 Phosphorus Level 3.2 Platelet Count 423 Potassium Level 4.3 Red Blood Count 3.34 #L Red Cell Distribution Width 16.0 H Sodium Level 143 Total Bilirubin 0.2 Total Protein 6.3 White Blood Count 12.8 H Test 10/18/16 05:42 10/18/16 08:41 10/18/16 12:12 Bedside Glucose 206 178 198 Medications Medications Current Medications Acetaminophen (Tylenol Liquid) 650 mg Q6H PRN GTB ELEVATED TEMPERATURE; Start 10/15/16 at 15:30 Ascorbic Acid (Vitamin C) 500 mg DAILY GTB Last administered on 10/18/16 08:30 ; Admin Dose 500 MG; Start 10/16/16 at 09:00 Diphenhydramine HCl (Benadryl) 25 mg Q6H PRN GTB ITCHING; Start 10/15/16 at 15: 30 Acetaminophen/ Hydrocodone Bitart ([place] (10/325)) 1 tab DAILY PRN GTB WOUND CARE; Start 10/15/16 at 15:30 Acetaminophen/ Hydrocodone Bitart ([place] (10/325)) 1 tab Q6H PRN GTB PAIN; Start 10/15/16 at 15:30 Insulin Glargine (Lantus) 12 unit BID SC Last administered on 10/18/16 08:45; Admin Dose 12 UNIT; Start 10/15/16 at 21:00 Isosorbide Dinitrate (Isordil) 20 mg TID GTB Last administered on 10/18/16 12: 37; Admin Dose 20 MG; Start 10/15/16 at 21:00 Lansoprazole (Prevacid) 30 mg BID GTB Last administered on 10/18/16 08:31; Admin Dose 30 MG; Start 10/15/16 at 21:00 Levetiracetam (Keppra Liquid) 1,000 mg BID GTB Last administered on 10/18/16 08:29; Admin Dose 1,000 MG; Start 10/15/16 at 21:00 Metoclopramide HCl (Reglan Liq) 5 mg Q8H PRN GTB NAUSEA AND/OR VOMITING; Start 10/15/16 at 15:30 Multivitamins (Thera-Plus) 5 ml DAILY GTB Last administered on 10/18/16 08:30 ; Admin Dose 5 ML; Start 10/16/16 at 09:00 Sucralfate (Carafate Susp) 1 gm BID GTB Last administered on 10/18/16 08:30; Admin Dose 1 GM; Start 10/15/16 at 21:00 Zinc Sulfate (Zinc Sulfate) 220 mg DAILY GTB Last administered on 10/18/16 08: 31; Admin Dose 220 MG; Start 10/16/16 at 09:00 Miscellaneous Information 1 ea NOTE XX ; Start 10/15/16 at 15:30 Glucose (Glutose) 15 gm Q15M PRN PO DECREASED GLUCOSE; Start 10/15/16 at 15:31 Glucose (Glutose) 22.5 gm Q15M PRN PO DECREASED GLUCOSE; Start 10/15/16 at 15: 30 Dextrose (D50w Syringe) 25 ml Q15M PRN IV DECREASED GLUCOSE; Start 10/15/16 at 15:30 Dextrose (D50w Syringe) 50 ml Q15M PRN IV DECREASED GLUCOSE; Start 10/15/16 at 15:30 Glucagon (Glucagen) 1 mg Q15M PRN IM DECREASED GLUCOSE; Start 10/15/16 at 15:30 Glucose 15 gm 15 gm Q15M PRN BUCCAL DECREASED GLUCOSE; Start 10/15/16 at 15:30 Piperacillin Sod/ Tazobactam Sod (Zosyn 3.375gm/ 100 ml (Pmx)) 100 ml @ 200 mls /hr Q8 IVPB Last administered on 10/18/16 14:02; Admin Dose 200 MLS/HR; Start 10/15/16 at 17:00 Heparin Sodium (Porcine) (Heparin (5000 Units/0.5 ml)) 5,000 unit BID SC Last administered on 10/15/16 21:10; Admin Dose 5,000 UNIT; Start 10/15/16 at 21:00 ; Status Future Hold Diagnostic Test (Pha) (Accucheck) 1 ea 02 XX ; Start 10/16/16 at 02:00 Insulin Aspart (Novolog Insulin Pen) NOVOLOG *MILD* ALGORI... Q6 SC Last administered on 10/18/16 12:40; Admin Dose 2 UNIT; Start 10/17/16 at 00:00 Hydralazine HCl (Apresoline) 25 mg Q6H PRN GTB ELEVATED SYSTOLIC BP; Start at 00:30 Furosemide (Lasix) 40 mg DAILY GTB Last administered on 10/18/16 08:39; Admin Dose 40 MG; Start 10/18/16 at 09:00 Hydralazine HCl 25 mg 25 mg QID GTB Last administered on 10/18/16 12:37; Admin Dose 25 MG; Start 10/18/16 at 13:00 Vancomycin HCl (Vancocin) 250 ml @ 125 mls/hr Q48H IVPB ; Start 10/19/16 at 09: 00; Status Future Hold Miscellaneous Information (*Rx Drug Level Order Reminder*) 1 ONCE ONCE XX ; Start 10/19/16 at 05:00; Stop 10/19/16 at 05:01 KARINE SCHAFER MD Oct 18, 2016 16:21
[2016-10-19] MEDS ORDERED: VANCOMYCIN 1 GM in NS 250 ML IVPB SCH (09:00)
== END 2016-10-18 17:52 | DRG 698 ==
LOC: E/R 09:04 → TEL 11:00
PROVIDERS: ADMIT Internal Medicine; ATTEND Internal Medicine
PROC: 5A1945Z Respiratory Ventilation, 24-96 Consecutive Hours (ICD-10-PCS; principal; 2016-10-15)
PROC: 30233N1 Transfusion of Nonautologous Red Blood Cells into Peripheral Vein, Percutaneous Approach (ICD-10-PCS; 2016-10-17)
DX: T83.518A Infection and inflammatory reaction due to other urinary catheter, initial encounter (principal); A41.9 Sepsis, unspecified organism; G92 Toxic encephalopathy; Z99.11 Dependence on respirator [ventilator] status; N17.9 Acute kidney failure, unspecified; J96.10 Chronic respiratory failure, unspecified whether with hypoxia or hypercapnia; N18.4 Chronic kidney disease, stage 4 (severe); L89.153 Pressure ulcer of sacral region, stage 3; N39.0 Urinary tract infection, site not specified; E46 Unspecified protein-calorie malnutrition; I42.9 Cardiomyopathy, unspecified; E87.5 Hyperkalemia; D63.8 Anemia in other chronic diseases classified elsewhere; Z93.1 Gastrostomy status; G40.909 Epilepsy, unspecified, not intractable, without status epilepticus; Z68.25 Body mass index [BMI] 25.0-25.9, adult; Z86.73 Personal history of transient ischemic attack (TIA), and cerebral infarction without residual deficits; B96.5 Pseudomonas (aeruginosa) (mallei) (pseudomallei) as the cause of diseases classified elsewhere; L89.510 Pressure ulcer of right ankle, unstageable; L89.522 Pressure ulcer of left ankle, stage 2; E11.9 Type 2 diabetes mellitus without complications
CPT/HCPCS: 36415; 36430; 71010; 76705; 80048; 80053; 80076; 80202; 81001; 81003; 82043; 82270; 82728; 82962; 83540; 83605; 83735; 84100; 84153; 84154; 84155; 84300; 84484; 85014; 85018; 85025; 85610; 85730; 86850; 86900; 86901; 86920; 86945; 87040; 87045; 87075; 87081; 87086; 93005; 94002; 94003; 94799; 96365; 96366; 96372; 96375; 96376; J0886; J1815; J2543; J3370; J7030; J7070; P9016; P9047

== ENCOUNTER 2017-01-07 14:58 | Day surgery (SDC) | payer MEDICARE, OTHER ==
[2017-01-07] VITALS (18 sets, daily range): BP systolic 106–169; BP diastolic 52–89; PULSE 54–62; RESP 8–16; Ht 162.6 cm; Wt 80.0 kg
[~2017-01-07] VITALS: Ht 162.6 cm; Wt 80.0 kg
[~2017-01-07 14:58] MED LIST: ACET325S GTB; ASCO500S2 GTB; CARAS GTB; DIPH25CA6 GTB; FURO40TA4 GTB; GLUC1KIT IJ; HYDR-3671 GTB; HYDR-902 GTB; INSU100V3 IJ; IPRA3AMP INHALATION; ISOS20TA19 GTB; LANS30CA GTB; LANT3I SC; LEVE500S9 GTB; MULTI GTB; UDREG GTB; ZINC220C5 GTB
[2017-01-07] MEDS ORDERED: PROPOFOL 40 ML ONE (15:18)
[2017-01-07] MEDS ORDERED: LIDOCAINE 100 MG SYRINGE ONE (15:18)
[2017-01-07] MEDS ORDERED: PANT40TA3 PO (15:44)
[2017-01-07] MEDS ORDERED: BENA20TA65 PO (15:45)
[2017-01-07] MEDS ORDERED: LANT3I SC (15:45)
[2017-01-07] MEDS ORDERED: PRED20TA PO (15:46)
[2017-01-07] MEDS ORDERED: EPO2ESRD SC (15:47)
[2017-01-07] MEDS ORDERED: FENTAnyl 50 MCG/ML VIAL ONE (17:44)
[2017-01-07] MEDS ORDERED: ROCURONIUM 50 MG INJ ONE ×2 (18:08)
[2017-01-07] MEDS ORDERED: GLYCOPYRROLATE 0.4 MG INJ ONE (18:09)
[2017-01-07] MEDS ORDERED: NEOSTIGMINE 3 MG/3 ML SYRINGE ONE (18:09)
--- NOTE | 2017-01-07 18:58 | GILP ---
DATE OF PROCEDURE: 01/07/2017 PROCEDURE: Colonoscopy. INDICATION: The patient is a 71-year-old male undergoing this procedure for rectal bleeding. INFORMED CONSENT: The risk of the procedure, related and unrelated complications, anesthetic risks, alternatives discussed and informed consent was obtained. DESCRIPTION OF PROCEDURE: Patient was brought to the OR 5, sedated by Dr. Cotto and after obtaini ng sedation, scope was passed with much ease into rectum, advanced through sigmoid, descending, womack sverse colon all the way into cecum. Appendiceal orifice identified. No growth was seen in the rec kendall, ____diminutive polyp in the transverse colon. Rest of the colon appeared normal. Clarity was good. Cleanliness was adequate. Hemorrhoids identified, which definitely was a cause of bleeding. Anal sphincter tone was poor. Scope was thus removed with good patient tolerance. There was absol utely no trace of blood seen. IMPRESSION: 1. Normal findings all the way into cecum. 2. Hemorrhoids , which is the cause of bleeding, mild to moderate size. 3. Diminutive polyp in the transverse colon, incidental finding, not a cause of bleeding. 4. There was no evidence of active bleeding or ____ blood. PLAN: To continue present care. Avoid blood thinner. Dictated By: KARINE SCHAFER MD PJ/HANK Conf#: [id number] DID#: [id number] CC: KARINE SCHAFER MD;*EndCC*
== END 2017-01-07 19:42 ==
LOC: SDS 14:58
PROVIDERS: ATTEND Internal Medicine Gastroenterology
DX: D12.3 Benign neoplasm of transverse colon (principal); K64.9 Unspecified hemorrhoids; E11.9 Type 2 diabetes mellitus without complications; I10 Essential (primary) hypertension; J96.00 Acute respiratory failure, unspecified whether with hypoxia or hypercapnia; E78.5 Hyperlipidemia, unspecified; Z99.81 Dependence on supplemental oxygen
CPT/HCPCS: 45380; 94002; J3010; J2001; J2710